=== PATIENT | female | born 1990 | race Caucasian/White ===

== ENCOUNTER 2022-01-25 09:04 | Outpatient (CLI) | payer BC, SELFPAY ==
--- OUTSIDE RECORDS SUMMARY | 2022-01-25 09:06 | XMS_ITS | Clinical Summary ---
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
--- OUTSIDE RECORDS SUMMARY | 2022-01-25 09:07 | XMS_ITS | Encounter Summary ---
:1990 Author Organization [place] Address [address] [facility] [place] [address] Care Team Providers Name Role Phone Unavailable Primary Care Provider Unavailable Encounter Details Date Type Department Care Team Description 10/22/2019 Orders Only [facility] Orthopaedic Michelle James En counter for Clinic AMD screening for other [address] [facility] [address] [place] [address] viral diseases 4th Floor [place], [place] (Primary Dx) [place] [phone] Social History Tobacco Use Types Packs/Day Years Used Date Never Assessed Sex Assigned at Date Recorded Female 10/11/2019 5:38 PM CDT COVID-19 Exposure Response Date Recorded In the last month, have you been in contact with No / Unsure 10/15/2019 12:16 PM CDT someone who was confirmed or suspected to have Coronavirus / COVID-19? documented as of this encounter Plan of Treatment Not on filedocumented as of this encounter Results Asymptomatic COVID-19 Virus (Coronavirus) by PCR (10/29/2019 9:23 AM CDT) [facility] Method Time Signature COVID-19 Nasopharyngeal 10/29/2019 [facility] Virus PCR to 9:25 AM CDT [facility] - [facility] COVID-19 Not Detected 10/29/2019 [facility] Virus PCR to 9:25 PM CDT [facility] - GENOMICS Result CENTER LABORATORY Comment: Collection of multiple specimens from th e same patient may be necessary to detect the virus. The possibility of a f alse negative should be considered if the patient's recent exposure or clinica l presentation suggests 2019 nCOV infection and diagnostic tests for other causes of illness are negative. Repeat testing may be considered in this setting. Viral RNA was extracted via a validated method and subsequently underwent single step reverse transcriptase-real t анна polymerase chain reaction using primers to the CDC specified N1,N2 gene targets of CoV2 and human [employer] as an internal control. A negative result does not rule out the presence of real-time PCR inhibitors in the specimen or COVID-19 RNA in romeo ntrations below the limit of detection of the assay. The possibility of a fals e negative should be considered if the patients recent exposure or clinical pr esentation suggests COVID-19. Additional testing or repeat testing req uires consultation with the laboratory. Nasopharyngeal specimen is the preferred choice for swab-based SARS CoV2 testing. When collection of a nasopharyn geal swab is not possible the following are acceptable alternatives: an oropharyngeal (OP) specimen collected by a healthcare professional, or a nasal mid-turbinate (NMT) swab collected by a healthcare professional or by onsite self-collection (using a flocked tapered swab), or an anterior nares specimen collected by a healthcare profe ssional or by onsite self-collection (using a round foam swab). (Centers for Disease Control) Testing performed by [facility], Room 1-210, [address] [place] [address]. T his test was developed and its performance characteristics determined b y the [facility]. It has not been cleared or appr florencio by the FDA. The laboratory is regulated under the Cl inical Laboratory Improvement Amendments of 1988 (CLIA-88) as qualifie d to perform high-complexity testing. This test is used for clinical purposes. It should not be regarded as investigational or for research. Specimen (Source) Anatomical Collection Method Collection Time Re ceived Time Location / / Volume Laterality Specimen from 10/29/2019 9:23 10/29/2019 nasopharyngeal AM CDT 9:24 AM CDT structure (specimen) Michelle James MD LAB - MICRO GENERAL ORDERABL ES Performing Organization Address City/State/ZIP [place] [address] GENOMICS CENTER Room: 1-[address] [phone] [facility] documented in this encounter Visit Diagnoses Diagnosis Encounter for screening for other viral diseases - Primary documented in this encounter
--- OUTSIDE RECORDS SUMMARY | 2022-01-25 09:07 | XMS_ITS | Encounter Summary ---
:1990 Author Organization [place] Address [address] [place] [address] Care Team Providers Name Role Phone Unavailable Primary Care Provider Unavailable Reason for Visit Diagnostic Imaging XR (Routine) - Closed Specialty Diagnoses / Procedures Referred By Contact Refer red To Contact Diagnoses Patellar instability of right knee Michelle James MD Procedures XR Knee Bilateral 05/[address] [place] [address] [id number] 5 Referral ID Status Reason Start Date Expiration Date Visits Requ ested Visits Authorized [id number] Closed 10/14/2019 10/13/2020 1 1 Encounter Details Date Type Department Care Team Description 10/15/2019 Ancillary Michelle Gallardo Patellar Procedure Orthopaedics Yanni Khan MD instability of [address] [facility] [address] [place] [address] right knee 4th [place] [phone] Social History Tobacco Use Types Packs/Day Years [...] Not on filedocumented as of this encounter Procedures Procedure Name Priority Date/Time Associated Diagnosis Comme nts XR KNEE BILATERAL Routine 10/15/2019 1:38 PM Patellar instabil ity Results for this 1/2 VIEWS CDT of right knee procedure are in the results section. documented in this encounter Results XR Knee Bilateral 1/2 Views (10/15/2019 1:38 PM CDT) Anatomical Region Laterality Modality Knee Bilateral Computed Radiography Specimen (Source) Anatomical Location Collection Method / Collectio n Time Received Time / Laterality Volume Impressions 10/15/2019 1:55 PM CDT IMPRESSION: Mild lateral patellar subluxation and patellar tilt in both knees. MARTIN COLVIN MD Narrative 10/15/2019 1:55 PM CDT Exam: Single axial view of both knees dated 10/15/2019. COMPARISON: Same day. CLINICAL HISTORY: Patellar instability. FINDINGS: Single axial view of both knee s were obtained. Slight lateral patellar subluxation of both kne es with minimal lateral patellar tilt. No fracture noted. Procedure Note Martin Colvin MD - 10/15/2019Form atting of this note might be different from the original. Exam: Single axial view of both knees da lily 10/15/2019. COMPARISON: Same day. CLINICAL HISTORY: Patellar instability. FINDINGS: Single axial view of both knee s were obtained. Slight lateral patellar subluxation of both kne es with minimal lateral patellar tilt. No fracture noted. IMPRESSION: Mild lateral patellar sublux ation and patellar tilt in both knees. MARTIN COLVIN MD Michelle James MD IMG DIAGNOSTIC IMAGING ORDER ANA LILIA documented in this encounter Visit Diagnoses Diagnosis Patellar instability of right knee Other specified disorders of lower leg j oint documented in this encounter
--- OUTSIDE RECORDS SUMMARY | 2022-01-25 09:07 | XMS_ITS | Encounter Summary ---
:1990 Author Organization [place] Address [address] [facility] [place] [address] Care Team Providers Name Role Phone Unavailable Primary Care Provider Unavailable Reason for Visit Reason Comments Surgical Followup DOS 11/01/19 Diagnostic Arthr oscopy Knee--Right, lateral meniscus repair - Right Encounter Details Date Type Department Care Team Description 12/23/2019 Office Visit [facility] MD Arjun unspecified [address] [place] [address] chronicity (Primary 4th Floor [place], [place] Dx) [place] [phone] Social History Tobacco Use Types Packs/Day Years Used Date Never Smoker Smokeless Tobacco: Never Used Sex Assigned at Date Recorded Female 10/11/2019 5:38 PM CDT COVID-19 Exposure Response Date Recorded In the last month, have you been in contact with No / Unsure 12/23/2019 11:43 AM CDT someone who was confirmed or suspected to have Coronavirus / COVID-19? documented as of this encounter Progress Notes Willie Reeder MD - 12/23/2019 12:00 PM CDT DIAGNOSIS: 1. Right lateral meniscus tear PROCEDURES: 1. Inside-out lateral meniscus repair, date of surgery 11/01/2019 HISTORY: Doing well 6 week out from surgery. Pain controlled. Off narcotics. Working in therapy. Has been compliant with weight bearing and ROM restrictions. Has returned to work. Denies fevers, chills, wound concerns, drainage. EXAM: General: Awake, Alert, and oriented. Articulates and communicates with a normal affect Right lower Extremity: ?? Incisions well healed without evidence of infection ?? No effusion and ecchymosis ?? Range of motion 0-90 ?? Stable to varus, valgus, lachmans ?? Neurovascularly intact IMAGING: None ASSESSMENT: 1. 6 week following inside out lateral meniscus repair. Doing well. PLAN: ?? Weightbearing as tolerated without knee brace ?? ROM as tolerated ?? Continue PT as scheduled ?? Okay for walking, but no running, jogging, squatting, kneeling ?? Goal to allow straight line running at 3 months post op ?? Follow up at 6 weeks from today (3 months from surgery) with no new X-Rays needed Willie Reeder MD Fellow, Sports Medicine & Shoulder [facility] Orthopaedic Surgery Jose Manuel Peters MD - 12/23/2019 12:00 PM CDT Patient seen and examined with the resident. Assesment: 6 weeks following meniscus repair, lateral meniscus right knee Plan: wbat, rom as darling, avoid kneeling or squatting, no running or jumping. Build strength and motion to allow running in 12 weeks. F/u 6 weeks I agree with history, physical and imaging as well as the assessment and plan as detailed by Dr. Reeder. documented in this encounter Nursing Notes Joann Najera ATC - 12/23/2019 12:00 PM CDT Reason For Visit: Chief Complaint Patient presents with ??? Surgical Followup DOS 11/01/19 Diagnostic Arthroscopy Knee--Right, lateral meniscus repair - Right Date of surgery: 11/01/19 Type of surgery: PROCEDURE: 1. Examination under anesthesia right knee 2. Right knee arthroscopy 3. Inside-out lateral meniscus repair Smoker: No Request smoking cessation information: No Pain Assessment Patient Currently in Pain: Yes 0-10 Pain Scale: 2 Primary Pain Location: Knee There were no vitals taken for this visit. No Known Allergies Current Outpatient Medications Medication ??? lisinopril (ZESTRIL) 10 MG tablet ??? Melatonin 5 MG CHEW ??? norethindrone (MICRONOR) 0.35 MG tablet No current facility-administered medications for this visit. Joann Najera ATC documented in this encounter Plan of Treatment Not on filedocumented as of this encounter Visit Diagnoses Diagnosis Right knee pain, unspecified chronicity - Primary documented in this encounter
--- OUTSIDE RECORDS SUMMARY | 2022-01-25 09:07 | XMS_ITS | Clinical Summary ---
:1990 Author Organization [place] Address [address] [facility] [place] [address] Care Team Providers Name Role Phone Unavailable Primary Care Provider Unavailable Allergies Active Allergy Reactions Severity Noted Date Comments Seasonal Allergies Headache, Other (See Comments) 01/14 Medications Medication Sig Dispensed Refills Start Date End Date Status lisinopril (ZESTRIL) 10 Take 1 tablet by 0 0 Active MG tablet mouth daily Melatonin 5 MG CHEW Take 1 tablet by 0 12/13/2018 Active mouth as needed norethindrone (MICRONOR) Take 1 tablet by 0 01/06/20 18 Active 0.35 MG tablet mouth daily Active Problems Problem Noted Date Locking of right knee 10/22/2019 Overview: Added automatically from request for charity [place] [id number] Resolved Problems Problem Noted Date Resolved Date Acute pain of right knee 10/15/2019 10/15/2019 Social History Tobacco Use Types Packs/Day Years Used Date Never Smoker Smokeless Tobacco: Never Used Sex Assigned at Date Recorded Female 10/11/2019 5:38 PM CDT Last Filed Vital Signs Vital Sign Reading Time Taken Comments Blood Pressure 120/73 11/01/2019 1:45 PM CDT Pulse 72 11/01/2019 1:45 PM CDT Temperature 36.4 ??C (97.5 ??F) 11/01/2019 1:45 PM CDT Respiratory Rate 16 02/03/2020 1:22 PM CDT Oxygen Saturation 97% 11/01/2019 1:45 PM CDT Inhaled Oxygen Concentration - - Weight 105.2 kg (232 lb) 02/03/2020 1:22 PM CDT Height 170.2 cm (5' 7) 02/03/2020 1:22 PM CDT Body Mass Index 36.34 02/03/2020 1:22 PM CDT Plan of Treatment Health Maintenance Due Date Last Done Comments ADVANCE CARE PLANNING 1990 ANNUAL REVIEW OF HM ORDERS 1990 PREVENTIVE CARE VISIT 1990 COVID-19 Vaccine (#1) 04/08/1992 HIV SCREENING 10/06/2006 HEPATITIS C SCREENING 10/06/2009 PAP 10/06/2012 DTAP/TDAP/TD IMMUNIZATION (1 10/06/2016 - Tdap) PHQ-2 (once per calendar 05/15/2021 02/03/2020, year) 10/15/2019, 10/15/2019 INFLUENZA VACCINE (#1) 2022 02/19/2019, 04/04/2018, 07/11/2014 HEPATITIS B IMMUNIZATION Aged Out No long er eligible based on patient's age to complete this to pic IPV IMMUNIZATION Aged Out No longer eligi ble based on patient's age to complete this to pic MENINGITIS IMMUNIZATION Aged Out No longe r eligible based on patient's age to complete this to pic Pneumococcal Vaccine: Aged Out No longer eligible based Pediatrics (0 to 5 Years) and on patient's age to At-Risk Patients (6 to 64 comple te this topic Years) Insurance Payer Benefit Plan / Subscriber ID Effective Dates Phone Addre ss Type Group BCBS BCBS OF [place] [id number] [facility] [phone] [address] [address] Indemnity t 0 [place] [address] (Home) [place] [phone] (Work) [employer]andes Personal/Family Self [address] (Home) [place] [phone] (Work)
--- OUTSIDE RECORDS SUMMARY | 2022-01-25 09:07 | XMS_ITS | Encounter Summary ---
:1990 Author Organization [place] Address [facility] [place] [address] Care Team Providers Name Role Phone Unavailable Primary Care Provider Unavailable Encounter Details Date Type Department Care Team Description 12/23/2019 Travel Social History Tobacco Use Types Packs/Day Years [...] filedocumented as of this encounter Visit Diagnoses Not on filedocumented in this encounter
--- OUTSIDE RECORDS SUMMARY | 2022-01-25 09:07 | XMS_ITS | Encounter Summary ---
:1990 Author Organization [place] Address [address] [place] [address] Care Team Providers Name Role Phone Unavailable Primary Care Provider Unavailable Reason for Visit Diagnostic Imaging XR (Routine) - Closed Specialty Diagnoses / Procedures Referred By Contact Refer red To Contact Diagnoses Patellar instability of right knee Michelle James MD Procedures XR Six Foot Standing Extremities [address] [place] [address] [phone] Referral ID Status Reason Start Date Expiration Date Visits Requ ested Visits Authorized [id number] Closed 10/14/2019 10/13/2020 1 1 Encounter Details Date Type Department Care Team Description 10/15/2019 Ancillary Michelle Gallardo Patellar Procedure Orthopaedics Yanni Khan MD instability of [address] [place] [address] [place] [address] right knee 4th [place] [address] [phone] Social History Tobacco Use Types Packs/Day Years [...] Priority Date/Time Associated Diagnosis Comme nts XR SIX FOOT STANDING Routine 10/15/2019 1:39 PM Patellar insta bility Results for this EXTREMITIES CDT of right knee procedure are in the results section. documented in this encounter Results XR Six Foot Standing Extremities (10/15/2019 1:39 PM CDT) Anatomical Region Laterality Modality Lower Extremity Computed Radiography Specimen (Source) Anatomical Location Collection Method / Collectio n Time Received Time / Laterality Volume Impressions 10/15/2019 1:50 PM CDT IMPRESSION: Normal weightbearing axis in the bilateral lower extremities. MARTIN COLVIN MD Narrative 10/15/2019 1:50 PM CDT Exam: Single view of the bilateral lower extremities dated 10/15/2019. COMPARISON: None. CLINICAL HISTORY: Patellar instability. FINDINGS: Single view of the bilateral lower extre mities was obtained. A line drawn from the top of the femoral head to the tibial plafond measures 81.9 on the left and 82.4 on th e right. A line drawn from the mid femoral head to the mid tibial plafo nd falls between the tibial spines in both lower extremities. Subtle focus of sclerosis along the fibular aspect of the right distal tibia , nonspecific, possibly healed nonossifying fibroma. Procedure Note Martin Colvin MD - 10/15/2019Form atting of this note might be different from the original. Exam: Single view of the bilateral lower extremities dated 10/15/2019. COMPARISON: None. CLINICAL HISTORY: Patellar instability. FINDINGS: Single view of the bilateral lower extre mities was obtained. A line drawn from the top of the femoral head to the tibial plafond measures 81.9 on the left and 82.4 on th e right. A line drawn from the mid femoral head to the mid tibial plafo nd falls between the tibial spines in both lower extremities. Subtle focus of sclerosis along the fibular aspect of the right distal tibia , nonspecific, possibly healed nonossifying fibroma. IMPRESSION: Normal weightbearing axis in the bilateral lower extremities. MARTIN COLVIN MD Michelle James MD IMG DIAGNOSTIC IMAGING ORDER ANA LILIA documented in this encounter Visit Diagnoses Diagnosis Patellar instability of right knee Other specified disorders of lower leg j oint documented in this encounter
--- OUTSIDE RECORDS SUMMARY | 2022-01-25 09:07 | XMS_ITS | Encounter Summary ---
:1990 Author Organization [place] Address [address] [place] [address] Care Team Providers Name Role Phone Unavailable Primary Care Provider Unavailable Reason for Referral Diagnostic Imaging MRI (Routine) - Closed Specialty Diagnoses / Procedures Referred By Contact Refer red To Contact Diagnoses Right knee pain, unspecified chronicity Michelle James MD Procedures MR Knee Right w/o Contrast [address] [place], [place] [address] Referral ID Status Reason Start Date Expiration Date Visits Requ ested Visits Authorized [id number] Closed 10/15/2019 10/14/2020 1 1 Reason for Visit Reason Comments Consult Patellar instability of righ t knee // Referred by Dr. Renato Calles at [facility] Orthoped ic Services to Dr. James // imaging xrays and MRI October 2018 // Consultation (Routine) - Closed Specialty Diagnoses / Procedures Referred By Contact Refer red To Contact Diagnoses Patellar instability of right knee Generic External Data [facility] [address] [place] [address] Phone: Fax: Referral ID Status Reason Start Date Expiration Date Visits Requ ested Visits Authorized [id number] Closed 07/05/2019 05/14/2020 40 40 Encounter Details Date Type Department Care Team Description 10/15/2019 Office Visit [facility] [address] [place] [address] Patellar instability of right knee (Prim tami Dx); Clinic Michelle James MD [address] [place] [phone] Right knee pain, unspecified chronicity; [address] [place] [address] Locking of right knee [address] [place] [address] Social History Tobacco Use Types Packs/Day Years Used Date Never Assessed Sex Assigned at Date Recorded Female 10/11/2019 5:38 PM CDT COVID-19 Exposure Response Date Recorded In the last month, have you been in contact with No / Unsure 10/15/2019 12:16 PM CDT someone who was confirmed or suspected to have Coronavirus / COVID-19? documented as of this encounter Last Filed Vital Signs Vital Sign Reading Time Taken Comments Blood Pressure - - Pulse - - Temperature - - Respiratory Rate - - Oxygen Saturation - - Inhaled Oxygen Concentration - - Weight 108.6 kg (239 lb 6.4 oz) 10/15/2019 1:39 PM CDT Height 172 cm (5' 7.72) 10/15/2019 1:39 PM CDT Body Mass Index 36.71 10/15/2019 1:39 PM CDT documented in this encounter Progress Notes LindaDanniMONICA - 10/15/2019 1:20 PM CDT Reason For Visit: Chief Complaint Patient presents with ??? Consult Patellar instability of right knee // Referred by Dr. Renato Calles at [facility] Orthopedic Services to Dr. James // imaging xrays x2 and MRI October 2018 // Primary MD: No primary care provider on file. Ref. MD: Dr. Renato Calles at [facility] Orthopedic Railway Shunter? 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 Date of injury: No Type of injury: reoccurring incident Date of surgery: No Type of surgery: No. Smoker: No Request smoking cessation information: No Ht 1.72 m (5' 7.72) Wt 108.6 kg (239 lb 6.4 oz) BMI 36.71 kg/m?? Pain Assessment Patient Currently in Pain: Yes 0-10 Pain Scale: 1 Primary Pain Location: Knee(right) Danni Mckeon LPN Michelle James MD - 10/15/2019 1:20 PM CDT Patient is a 29-year-old female who reports her own history. She is referred by Dr. Flako Talley of [place]. She carries a tentative diagnosis of right knee instability, presumably patella. She is very specific about these events. The first 1 started in October 2018. She was kneeling her in asquat position and she could not get up. Her knee was locked. When asked about what degree of knee flexion she demonstrates about 30 degrees of knee flexion and she could not bend it either way flexionor extension. At that time she went to the emergency room. She is very specific that the x- rays were taken when her knee was locked. They show a located kneecap. They also show no significance knee swelling At that event, she reports that her knee locking lasted approximately 3 days. She reports that her knee did become quite puffy or swollen. She has had 3 other events. The second event was in the fall that lasted about 4 hours The next event lasted only a few minutes. The most recent event happened in June and it lasted 1to 2 hours where her knee was locked. She is not sure how it unlocks. This last time in June was the first time that she actually feltthat her knee shifted and gave her some sense of relief after it shifted. At that time she could move her knee. She was actually in the emergency room getting onto the table when her knee shifted and she felt immediately better this was only time that was that dramatic. When asked how she has fared since June she reports that she just avoids squatting or kneeling on her knees. She finds that most of the events since the very first event was when she was kneeling and trying to get back up She currently lives alone. 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 She is however continuing to do some home visits during the summer She and enjoys CrossFit training. Her weight has been stable over time. She has modified her CrossFit so that she does not do jumping and twisting and does not do any kind of kneeling and then getting back up. She is not a smoker. She is currently on the estrogen patch for menstrual control as well as contraception. There is no known history of DVT. Physical exam reveals a woman of hefty body build. She moves on and off the table without issues. Examination of her affected knee reveals no knee swelling. Range of motion full extension to 125 degrees of flexion with some posterior discomfort to circumduction maneuvers that she cannot localize medial or lateral. Patella exam is stable in particular 1 quadrant lateral mobility with a firm endpoint. No apprehension Examination of her contralateral left knee reveals a similar exam except that her range of motion is0-1 35 with no pain to the limits of hyperextension. An MRI was done a year ago that was significant only for some grade II chondromalacia of the patella. It is also significant to note that this was taken after her first locked event. It was taken 15 days after she came into the ER in 2019. It shows no pathologic knee swelling. A new MRI was obtained today. With her history of locking I felt that it sounded suspicious for perhaps an advancing lateral meniscus tear that was now more easily displaceable to lock and unlock. The MRI done today was significant for continued chondral wear of the patella, and some minor swelling of the knee in particular swelling in the meniscosynovial posterior lateral junction. On coronal views there appears to be a protruded lateral meniscus, which is not as evident on sagittal views. Assessment: It is clear to me that this patient has not dislocating her patella. This is reinforced by physical exam, no knee swelling on MRI, and a located kneecap on her ER visit which was done during the time that her knee was locked. Primarily based on the history, I would favor a working diagnosis of a hypermobile lateral meniscus.I believe that there are suggestions on the new MRI that that this is present, but the diagnosis is primarily made by her history. I would suggest that we perform a diagnostic arthroscopy. Really the most telling way to confirm this diagnosis would be to show that the meniscus is displaceable under anesthesia at the time of arthroscopy. If it is that she will proceed with a lateral meniscus repair. She understands that I no longer do the surgery and I have transferred her to my partner Jesus Alberto Kaplan. She understands this and is comfortable seeing him the morning surgery. I did go through her postoperative regiment and potential time away from work. Because she can be shelly knee brace that she can lock and unlock I believe that she be able to go back to her job within a few weeks as she does not have any kind of behavioral issues that have to be managed. All questions were answered. Room time 30 minutes consultation time 25 Michelle James MD Professor Orthopedic Surgery [facility] Answers for HPI/ROS submitted by the patient on 10/14/2019 General Symptoms: No Skin Symptoms: No HENT Symptoms: Yes EYE SYMPTOMS: No HEART SYMPTOMS: No LUNG SYMPTOMS: No INTESTINAL SYMPTOMS: No URINARY SYMPTOMS: No GYNECOLOGIC SYMPTOMS: No BREAST SYMPTOMS: No SKELETAL SYMPTOMS: Yes BLOOD SYMPTOMS: No NERVOUS SYSTEM SYMPTOMS: Yes MENTAL HEALTH SYMPTOMS: No Ear pain: No Ear discharge: No Hearing loss: No Tinnitus: No Nosebleeds: No Congestion: Yes Sinus pain: Yes Trouble swallowing: No Voice hoarseness: No Mouth sores: No Sore throat: No Tooth pain: No Gum tenderness: No Bleeding gums: No Change in taste: No Change in sense of smell: No Dry mouth: No Hearing aid used: No Neck lump: No Back pain: Yes Muscle aches: No Neck pain: No Swollen joints: No Joint pain: Yes Bone pain: No Muscle cramps: No Muscle weakness: No Joint stiffness: No Bone fracture: No Trouble with coordination: No Dizziness or trouble with balance: No Fainting or black-out spells: No Memory loss: No Headache: Yes Seizures: No Speech problems: No Tingling: No Tremor: No Weakness: No Difficulty walking: No Paralysis: No Numbness: No documented in this encounter Plan of Treatment Not on filedocumented as of this encounter Results MR Knee Right w/o Contrast (10/15/2019 3:35 PM CDT) Anatomical Region Laterality Modality Right Knee, SUBRAD MR MSK, UMP MR MSK, RAD MR Magnetic Resonance Specimen (Source) Anatomical Location Collection Method / Collectio n Time Received Time / Laterality Volume Impressions 10/15/2019 3:43 PM CDT Impression: 1. Full-thickness fissuring of cartilage over the median ridge and lateral facet of the patella. Trace late ral patellar subluxation. 2. Intact menisci, cruciate ligaments, a nd medial and lateral supporting structures. DARRELL FERNANDEZ MD (Joe) Narrative 10/15/2019 3:43 PM CDT MR right knee without contrast Techniques: Multiplanar multisequence im aging of the right ??knee was obtained without ??administration of int ra-articular or intravenous contrast using routing protocol. History: Right knee pain Comparison: Radiographs same-day, outsid e MRI 6 Findings: MENISCI: Medial meniscus: Intact. Lateral meniscus: Intact. LIGAMENTS Cruciate ligaments: Intact. Medial supporting structures: Intact. Lateral supporting structures: Intact. EXTENSOR MECHANISM Intact. FLUID Trace joint effusion. No Alba's cyst. OSSEOUS and ARTICULAR STRUCTURES Bones: No fracture, contusion, or osseou s lesion is seen. Patellofemoral compartment: Full-thickne ss fissuring of cartilage over the median ridge and lateral facet of th e patella with mild subchondral cystic change and edema. The patella is subluxed laterally approximately 4 mm. Patella ray. Shallo w trochlear groove measuring 4 mm on series 4 image 17. Tibial tuberosi ty-trochlear groove interval measures 1.7 cm, within normal limits. Medial compartment: Mild heterogeneity o f cartilage in the medial compartment (for example series 6 image 19). No subchondral cystic change or edema. Lateral compartment: Mild chondral heter ogeneity of the posterior aspect of the lateral tibial plateau com patible with mild chondromalacia. ANCILLARY FINDINGS None. Procedure Note Darrell Fernandez, - 10/15/19 20 MR right knee without contrast Techniques: Multiplanar multisequence im aging of the right knee was obtained without administration of intra -articular or intravenous contrast using routing protocol. History: Right knee pain Comparison: Radiographs same-day, outsid e MRI 6 Findings: MENISCI: Medial meniscus: Intact. Lateral meniscus: Intact. LIGAMENTS Cruciate ligaments: Intact. Medial supporting structures: Intact. Lateral supporting structures: Intact. EXTENSOR MECHANISM Intact. FLUID Trace joint effusion. No Alba's cyst. OSSEOUS and ARTICULAR STRUCTURES Bones: No fracture, contusion, or osseou s lesion is seen. Patellofemoral compartment: Full-thickne ss fissuring of cartilage over the median ridge and lateral facet of th e patella with mild subchondral cystic change and edema. The patella is subluxed laterally approximately 4 mm. Patella ray. Shallo w trochlear groove measuring 4 mm on series 4 image 17. Tibial tuberosi ty-trochlear groove interval measures 1.7 cm, within normal limits. Medial compartment: Mild heterogeneity o f cartilage in the medial compartment (for example series 6 image 19). No subchondral cystic change or edema. Lateral compartment: Mild chondral heter ogeneity of the posterior aspect of the lateral tibial plateau com patible with mild chondromalacia. ANCILLARY FINDINGS None. Impression: 1. Full-thickness fissuring of cartilage over the median ridge and lateral facet of the patella. Trace late ral patellar subluxation. 2. Intact menisci, cruciate ligaments, a nd medial and lateral supporting structures. DARRELL FERNANDEZ MD (Joe) Michelle James MD IMG MRI ORDERABLES documented in this encounter Visit Diagnoses Diagnosis Patellar instability of right knee - Vanesa mccormick Other specified disorders of lower leg j oint Right knee pain, unspecified chronicity Locking of right knee Right knee pain, unspecified chronicity documented in this encounter
--- OUTSIDE RECORDS SUMMARY | 2022-01-25 09:07 | XMS_ITS | Encounter Summary ---
:1990 Author Organization [place] Address [facility] [place] [address] Care Team Providers Name Role Phone Unavailable Primary Care Provider Unavailable Encounter Details Date Type Department Care Team Description 11/01/2019 Travel Social History Tobacco Use Types Packs/Day Years Used Date Never Assessed Sex Assigned at Date Recorded Female 10/11/2019 5:38 PM CDT COVID-19 Exposure Response Date Recorded In the last month, have you been in contact with No / Unsure 11/01/2019 8:22 AM CDT someone who was confirmed or suspected to have Coronavirus / COVID-19? documented as of this encounter Plan of Treatment Not on filedocumented as of this encounter Visit Diagnoses Not on filedocumented in this encounter
--- OUTSIDE RECORDS SUMMARY | 2022-01-25 09:07 | XMS_ITS | Encounter Summary ---
:1990 Author Organization [place] Address [facility] [place] [address] Care Team Providers Name Role Phone Unavailable Primary Care Provider Unavailable Encounter Details Date Type Department Care Team Description 10/22/2019 Prep for Procedure [facility] Orthopaedic Jesus Alberto Peters [facility] MD Arjun [address] [place] [address] 4th [address] [place], [place] [address] [phone] Social History Tobacco Use Types Packs/Day Years Used Date Never Assessed Sex Assigned at Date Recorded Female 10/11/2019 5:38 PM CDT COVID-19 Exposure Response Date Recorded In the last month, have you been in contact with No / Unsure 10/15/2019 12:16 PM CDT someone who was confirmed or suspected to have Coronavirus / COVID-19? documented as of this encounter Miscellaneous Notes Addendum Note - Ramez Peters MD - 10/22/2019 10:17 AM CDT Addended by: RAMEZ PETERS on: 10/24/2019 08:35 AM Modules accepted: Orders documented in this encounter Plan of Treatment Not on filedocumented as of this encounter Procedures Procedure Name Priority Date/Time Associated Diagnosis Comme nts CASE REQUEST MODIFICATION Routine 10/24/2019 8:35 AM CDT documented in this encounter Visit Diagnoses Not on filedocumented in this encounter
--- OUTSIDE RECORDS SUMMARY | 2022-01-25 09:07 | XMS_ITS | Encounter Summary ---
:1990 Author Organization [place] Address [address] [facility] [place] [address] Care Team Providers Name Role Phone Unavailable Primary Care Provider Unavailable Reason for Visit Reason Onset Date Comments *-*INCOMING RECORDS*-* 09/03/2019 Encounter Details Date Type Department Care Team Description 09/03/2019 PRE VISIT [facility] Orthopaedic Michelle James, *-*INCOMING RECORDS*-* Clinic [address] [place] [id number] [phone] Social History Tobacco Use Types Packs/Day Years Used Date Never Assessed Sex Assigned at Date Recorded Female 10/11/2019 5:38 PM CDT documented as of this encounter Miscellaneous Notes Telephone Encounter - Dinah Sanchez - 07/12/2019 12:04 PM CST DIAGNOSIS: Patellar instability of right knee // Referred by Dr. Renato Calles at [facility] Orthopedic Services to Dr. James // imaging xrays x2 and MRI October 2018 // APPOINTMENT DATE: 09.03.2019 NOTES STATUS DETAILS OFFICE NOTE from referring provider Received 07.01.19 Dr. Calles, [facility] -Requested if there are any more related records. OFFICE NOTE from other specialist N/A DISCHARGE SUMMARY from hospital N/A DISCHARGE REPORT from the ER N/A OPERATIVE REPORT N/A MEDICATION LIST N/A IMPLANT RECORD/STICKER N/A LABS CBC/DIFF N/A CULTURES N/A INJECTIONS DONE IN RADIOLOGY N/A MRI In process 10.31.18 Right lower extremity, CDI 10.31.[address] SCAN N/A XRAYS (IMAGES & REPORTS) N/A TUMOR PATHOLOGY Slides & report N/A Action 07.12.19 12:17 PM Action Taken Requested CDI images. Also, requested more med recs from [facility]. 07/19/19 1:58 PM Disc with images given to Jessie Pre-visit complete Debra Silva CMA CONDITIONER documented in this encounter Plan of Treatment Not on filedocumented as of this encounter Visit Diagnoses Not on filedocumented in this encounter
--- OUTSIDE RECORDS SUMMARY | 2022-01-25 09:07 | XMS_ITS | Encounter Summary ---
:1990 Author Organization [place] Address [address] [facility] [place] [address] Care Team Providers Name Role Phone Unavailable Primary Care Provider Unavailable Reason for Visit Reason Comments Surgical Followup S/P right knee surgery Encounter Details Date Type Department Care Team Description 02/03/2020 Office Visit [facility] Orthopaedic Jose Manuel Peters Ri ght knee pain, Clinic MD Arjun unspecified [address] [place] [address] chronicity (Primary [address] Floor [place], [place] Dx) [place] [phone] Social History Tobacco Use Types Packs/Day Years Used Date Never Smoker Smokeless Tobacco: Never Used Sex Assigned at Date Recorded Female 10/11/2019 5:38 PM CDT COVID-19 Exposure Response Date Recorded In the last month, have you been in contact with No / Unsure 02/03/2020 12:57 PM CDT someone who was confirmed or suspected to have Coronavirus / COVID-19? documented as of this encounter Last Filed Vital Signs Vital Sign Reading Time Taken Comments Blood Pressure - - Pulse - - Temperature - - Respiratory Rate 16 02/03/2020 1:22 PM CDT Oxygen Saturation - - Inhaled Oxygen Concentration - - Weight 105.2 kg (232 lb) 02/03/2020 1:22 PM CDT Height 170.2 cm (5' 7) 02/03/2020 1:22 PM CDT Body Mass Index 36.34 02/03/2020 1:22 PM CDT documented in this encounter Progress Notes Jose Manuel Peters MD - 02/03/2020 1:20 PM CDT DIAGNOSIS: 1. Right lateral meniscus tear PROCEDURES: 1. Inside-out lateral meniscus repair, date of surgery 11/01/2019 HISTORY: Doing well 12 weeks out from the above surgery. Pain controlled. Off narcotics. Pain is 1. Overall happy with how she is doing. Would like to do more. Like to return to running. EXAM: General: Awake, Alert, and oriented. Articulates and communicates with a normal affect Right lower Extremity: ?? Incisions well healed without evidence of infection ?? No effusion and ecchymosis ?? Range of motion 0 to 120 degrees ?? Stable to varus, valgus, lachmans ?? Neurovascularly intact IMAGING: None ASSESSMENT: 1. 12 weeks following inside out lateral meniscus repair. PLAN: ?? Weightbearing as tolerated ?? range of motion as tolerated ?? Okay to transition back to desired activities ?? No specific restrictions besides commonsense ?? Try to make an effort to avoid repeated squatting or hyperflexion however she is ultimately allowed to return to her desired activities at this time ?? She can follow-up with me on an as-needed basis going forward. If she is having symptoms in 3 months time which would be 6 months from surgery she is certainly welcome to make an appointment see me again in clinic at that time. documented in this encounter Nursing Notes Damian Mcdonough ATC - 02/03/2020 1:20 PM CDT Reason For Visit: Chief Complaint Patient presents with ??? Surgical Followup S/P right knee surgery . Date of surgery: Diagnostic Arthroscopy Knee--Right, lateral meniscus repair Type of surgery: 11/01/19. Pain Assessment Patient Currently in Pain: Yes 0-10 Pain Scale: 1 Primary Pain Location: Knee documented in this encounter Plan of Treatment Not on filedocumented as of this encounter Visit Diagnoses Diagnosis Right knee pain, unspecified chronicity - Primary documented in this encounter
--- OUTSIDE RECORDS SUMMARY | 2022-01-25 09:07 | XMS_ITS | Encounter Summary ---
:1990 Author Organization [place] Address [facility] [place] [address] Care Team Providers Name Role Phone Unavailable Primary Care Provider Unavailable Encounter Details Date Type Department Care Team Description 10/29/2019 Travel Social History Tobacco Use Types Packs/Day Years Used Date Never Assessed Sex Assigned at Date Recorded Female 10/11/2019 5:38 PM CDT COVID-19 Exposure Response Date Recorded In the last month, have you been in contact Unable to assess 10/29/2019 9:23 AM CDT with someone who was confirmed or suspected to have Coronavirus / COVID-19? documented as of this encounter Plan of Treatment Not on filedocumented as of this encounter Visit Diagnoses Not on filedocumented in this encounter
--- OUTSIDE RECORDS SUMMARY | 2022-01-25 09:07 | XMS_ITS | Encounter Summary ---
:1990 Author Organization [place] Address [address] [facility] [place] [address] Care Team Providers Name Role Phone Unavailable Primary Care Provider Unavailable Reason for Visit Reason Comments Surgical Followup 1 wk post-op right knee scop e and lateral meniscus repair DOS 11/01/19 Encounter Details Date Type Department Care Team Description 11/11/2019 Office Visit [facility] Orthopaedic Jose Manuel Peters of right knee Clinic MD Arjun (Primary Dx) [address] [place] [address] [address] [place] [address] [phone] Social History Tobacco Use Types Packs/Day Years Used Date Never Assessed Sex Assigned at Date Recorded Female 10/11/2019 5:38 PM CDT COVID-19 Exposure Response Date Recorded In the last month, have you been in contact with No / Unsure 11/11/2019 12:40 PM CDT someone who was confirmed or suspected to have Coronavirus / COVID-19? documented as of this encounter Progress Notes Jose Manuel Peters MD - 11/11/2019 1:00 PM CDT DIAGNOSIS: 1. Right lateral meniscus tear PROCEDURES: 1. Inside-out lateral meniscus repair, date of surgery 11/01/2019 HISTORY: Doing well 1 week out from surgery. Pain controlled. Off narcotics. Started therapy. EXAM: General: Awake, Alert, and oriented. Articulates and communicates with a normal affect Right lower Extremity: ?? Incisions well healed without evidence of infection ?? Normal post-operative effusion and ecchymosis ?? Range of motion and stability exam not performed ?? Neurovascularly intact IMAGING: None ASSESSMENT: 1. 1 week following inside out lateral meniscus repair. Doing well. PLAN: ?? Weightbearing as tolerated with knee brace locked in full extension x6 weeks ?? No weightbearing with brace offer unlocked ?? Range of motion 0 to 90 degrees when sitting or doing therapy ?? Sutures removed in clinic ?? Leave steri-strips in place until they fall off ?? OK to shower allowing water to run over incision ?? No soaking, scrubbing, baths, or pablo for 1 additional week ?? Continue PT as scheduled ?? Pain medications reviewed and no refills required. ?? Operative report provided and arthroscopic images reviewed ?? Follow up at 6 weeks from the date of surgery with no new X-Rays needed documented in this encounter Nursing Notes Peg Patten ATC - 11/11/2019 1:00 PM CDT Reason For Visit: Chief Complaint Patient presents with ??? Surgical Followup 1 wk post-op right knee scope and lateral meniscus repair DOS 11/01/19 There were no vitals taken for this visit. Pain Assessment Patient Currently in Pain: Yes(more of soreness per pt) 0-10 Pain Scale: 3 Primary Pain Location: Knee(right) Peg Patten ATC documented in this encounter Plan of Treatment Not on filedocumented as of this encounter Visit Diagnoses Diagnosis Locking of right knee - Primary documented in this encounter
--- OUTSIDE RECORDS SUMMARY | 2022-01-25 09:07 | XMS_ITS | Encounter Summary ---
:1990 Author Organization [place] Address [address] [facility] [place] [address] Care Team Providers Name Role Phone Unavailable Primary Care Provider Unavailable Encounter Details Date Type Department Care Team Description 10/29/2019 Orders Only [facility] Michelle James, Encounter for [address] [place] [address] screening for other [address] [place] [address] [place] [phone] (Wo rk) Social History Tobacco Use Types Packs/Day Years [...] Name Priority Date/Time Associated Diagnosis Comme nts COVID-19 VIRUS Routine 10/29/2019 9:23 AM Encounter for Result s for this (CORONAVIRUS) BY CDT screening for other proc edure are in PCR viral diseases the results section. documented in this encounter Results Asymptomatic COVID-19 Virus (Coronavirus) by PCR (10/29/2019 9:23 AM CDT) [facility] Method Time Signature COVID-19 Nasopharyngeal 10/29/[address] [facility] PCR to 9:25 AM CDT [facility] COVID-19 Not Detected 10/29/2019 [facility] Virus PCR to 9:25 PM CDT [facility] LABORATORY Comment: Collection [...] N1,N2 gene targets of CoV2 and human CORONER/MEDICAL EXAMINER as an internal control. A negative result [...] (Centers for Disease Control) Testing performed by [facility], Room 1-210, [address] [place] [address]. T his test was developed and its performance characteristics determined b y the [facility]. It has not been cleared or appr [...] Organization Address City/State/ZIP Code Phon e Number [facility] [address] [place] [id number] [facility] Room: 1-[address] [phone] [facility] documented in this encounter Visit Diagnoses Diagnosis Encounter for screening for other viral diseases documented in this encounter
--- OUTSIDE RECORDS SUMMARY | 2022-01-25 09:07 | XMS_ITS | Encounter Summary ---
:1990 Author Organization [place] Address [address] [facility] [place] [address] Care Team Providers Name Role Phone Unavailable Primary Care Provider Unavailable Reason for Visit Reason Onset Date Comments Schedule Surgery 10/22/2019 Dr Peters Encounter Details Date Type Department Care Team Description 10/22/[address] [facility] Orthopaedic Jose Manuel Peters [facility] Surgery (MD Fran Shi) [address] [place] [address] [address] [place] [address] [phone] Social History Tobacco Use Types Packs/Day Years [...] this encounter Miscellaneous Notes Telephone Encounter - Perla Funes MA - 10/22/2019 11:01 AM CDT Patient is scheduled for surgery with Dr. 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
--- OUTSIDE RECORDS SUMMARY | 2022-01-25 09:07 | XMS_ITS | Encounter Summary ---
:1990 Author Organization [place] Address [address] [place] [address] Care Team Providers Name Role Phone Unavailable Primary Care Provider Unavailable Reason for Referral Diagnostic Imaging XR (Routine) - Closed Specialty Diagnoses / Procedures Referred By Contact Refer red To Contact Diagnoses Patellar instability of right knee Michelle James MD Procedures XR Six Foot Standing Extremities [address] [place], [place] [phone] Referral ID Status Reason Start Date Expiration Date Visits Requ ested Visits Authorized [id number] Closed 10/14/2019 10/13/2020 1 1 Diagnostic Imaging XR (Routine) - Closed Specialty Diagnoses / Procedures Referred By Contact Refer red To Contact Diagnoses Patellar instability of right knee Michelle James MD Procedures XR Knee Bilateral 1/[address] [place] [phone] 5 Referral ID Status Reason Start Date Expiration Date Visits Requ ested Visits Authorized [id number] Closed 10/14/2019 10/13/2020 1 1 AM Physical Therapy (Routine) - Closed Specialty Diagnoses / Procedures Referred By Contact Refer red To Contact Diagnoses Patellar instability of right knee Michelle James MD [address] [place] [address] 5545 5 Referral ID Status Reason Start Date Expiration Date Visits Requ ested Visits Authorized [id number] Closed 10/14/2019 10/13/2020 1 1 Encounter Details Date Type Department Care Team Description 10/14/[address] [facility] Orthopaedic Michelle James [facility] MD Bill of right knee [address] [place] [address] (Primary Dx) [address] [place] [phone] Social History Tobacco Use Types Packs/Day Years Used Date Never Assessed Sex Assigned at Date Recorded Female 10/11/2019 5:38 PM CDT documented as of this encounter Plan of Treatment Scheduled Referrals Name Type Priority Associated Diagnoses Order S chedule [facility] PT, HAND, AND Referral Routine Patellar instability 1 Occurrences starting CHIROPRACTIC REFERRAL of right knee 10/13 until 10/13/2020 documented as of this encounter Results XR Six Foot Standing [...] extremities. MARTIN COLVIN MD Michelle James MD [facility] ORDER ANA LILIA XR Knee Bilateral 1/2 Views (10/15/2019 1:38 [...] Exam: Single axial view of both knees [facility] 10/15/2019. COMPARISON: Same day. CLINICAL HISTORY: Patellar instability. FINDINGS: Single axial view of both knee s were obtained. Slight lateral patellar subluxation of both kne es with minimal lateral patellar tilt. No fracture noted. IMPRESSION: Mild lateral patellar sublux ation and patellar tilt in both knees. MARTIN COLVIN MD Michelle James MD [facility] ORDER ANA LILIA documented in this encounter Visit Diagnoses Diagnosis Patellar instability of right knee - Vanesa anny Other specified disorders of lower leg j oint Patellar instability of right knee Other specified disorders of lower leg j oint Patellar instability of right knee Other specified disorders of lower leg j oint documented in this encounter
--- OUTSIDE RECORDS SUMMARY | 2022-01-25 09:07 | XMS_ITS | Encounter Summary ---
:1990 Author Organization [place] Address [facility] [place] [address] Care Team Providers Name Role Phone Unavailable Primary Care Provider Unavailable Encounter Details Date Type Department Care Team Description 02/03/2020 Travel Social History Tobacco Use Types Packs/Day [...]
--- OUTSIDE RECORDS SUMMARY | 2022-01-25 09:07 | XMS_ITS | Encounter Summary ---
:1990 Author Organization [place] Address [address] [place] [address] Care Team Providers Name Role Phone Unavailable Primary Care Provider Unavailable Encounter Details Date Type Department Care Team Description 11/01/2019 Anesthesia Event [facility] Surgery and Jenelle Rojas MD [address] [facility] [address] [place], [place] [id number] Procedure Center Daniel Escoto MD [facility] [address] [facility] [address] [place] [address] [address] [place] [address] Anesthesia Record Procedure Summary Procedure Name Responsible Anesthesia Start Anesthesia Stop Anesthesiologist Time Time Diagnostic Jenelle Rojas MD 11/01/19 1058 11/01/19 1252 Arthroscopy Knee--Right, lateral meniscus repair (Right Knee) Events Date Time Event Comment 11/01/2019 1058 An Start 1103 An Start Data 1108 An Induction 1110 An LMA 1133 AN INCISION 1243 LMA Removed 1247 an stop data 1252 An Stop Electronically s igned by Jose R Krueger APRN CRNA on November 01, 2019 12 :52 PM Name Total fentaNYL 50 mcg/mL 100 mcg lidocaine 2% 100 mg propofol 10 mg/mL 200 mg ketamine injection 10 mg/mL 25 mg propofol infusion (mcg/kg/min) 397.75 mg glycopyrrolate 0.2 mg/mL 0.2 mg dexamethasone 4 mg/mL 4 mg ondansetron 2 mg/mL 4 mg ketorolac 30 mg/mL 30 mg ceFAZolin (ANCEF) intermittent infusion 2 g in 50 mL d extrose PREMIX 2 g bupivacaine liposome (EXPAREL) 1.3 % LA inj susp 10 mL 10 mL bupivacaine 0.25% PF (perineural) 10 mL lactated ringers infusion 200 mL Agents Name NO HELIOX O2 N2O Air Exp Sevoflurane Exp Isoflurane Exp Desflurane Exp N2O Ins Sevoflurane Ins Isoflurane Ins Desflurane O2 Auxiliary Blood No blood administrations on file. Lines, Drains, and Airways Type Details Placement Removal Incision/Surgical Site 11/01/19; 1130; Right; 11/01/19 1130 by Knee; x3 incisions Gisselle Ramirez, GEORGINA Peripheral IV 11/01/19; 0857; 20 G; 11/01/19 0857 by To, 10/31 1348 by Left; Hand GEORGINA Brown Curtis, GEORGINA Retired Non-Surgical 11/01/19; 1110; Easy; 11/01/19 1110 by 10/13 02/01 1243 by Airway Intravenous; laryngeal Jose R Krueger, Saul morrell, Jose R Alva, mask airway (#4); JUKEBOX CHECKER FILLER OPERATOR JUKEBOX CHECKER FILLER OPERATOR center of mouth; Equal, clear and bilateral; FILLER OPERATOR; Spontaneous ventilation, Adequate tidal volume, Head lift adequate, Supervisor Powdered Metal strength adequate, Transported with oxygen, Follows commands, Purposeful movement documented in this encounter Social History Tobacco Use Types Packs/Day Years Used Date Never Assessed Sex Assigned at Date Recorded Female 10/11/2019 5:38 PM CDT COVID-19 Exposure Response Date Recorded In the last month, have you been in contact with No / Unsure 11/01/2019 8:22 AM CDT someone who was confirmed or suspected to have Coronavirus / COVID-19? documented as of this encounter OR Notes Anesthesia Postprocedure Evaluation - Jenelle Rojas MD - 11/01/2019 2:56 PM CDT Anesthesia POST Procedure Evaluation Patient: Jewels Hernandes Gender: female Age: [age] year old : 1990 Preoperative Diagnosis: Locking of right knee [M23.91] Procedure(s): Diagnostic Arthroscopy Knee--Right, lateral meniscus repair Postop Comments: No value filed. Anesthesia Type: General, Peripheral Nerve Block Disposition: Outpatient Postop Pain Control: Uneventful Sign Out: Well controlled pain PONV: No Neuro/Psych: Uneventful Sign Out: Acceptable/Baseline neuro status Airway/Respiratory: Uneventful Sign Out: Acceptable/Baseline resp. status CV/Hemodynamics: Uneventful Sign Out: Acceptable CV status Other NRE: NONE DID A NON-ROUTINE EVENT OCCUR? No Event details/Postop Comments: Doing well. Alert, oriented. No sore throat, nausea, or problems with pain control. Patient denies any concerns. Last Anesthesia Record Vitals: FILLER OPERATOR VITALS 11/01/2019 1217 - 11/01/2019 1317 11/01/2019 Pulse: 97 SpO2: (!) 86 % Resp Rate (set): 10 Last PACU Vitals: Vitals Value Taken Time BP 126/75 11/01/2019 1:15 PM Temp 36.4 ??C (97.5 ??F) 11/01/2019 1:15 PM Pulse 89 11/01/2019 1:15 PM Resp 16 11/01/2019 1:15 PM SpO2 98 % 11/01/2019 1:15 PM Temp src NIBP Pulse SpO2 Resp Temp Ht Rate Temp 2 Electronically Signed By: Jenelle Rojas MD, November 01, 2019, 2:56 PM Anesthesia Procedure Notes - Jenelle Rojas MD - 11/01/2019 11:48 AM CDT Associated Order(s): Peripheral/Paravetebral Block Peripheral Nerve Block Procedure Note Staff - Anesthesiologist: Jenelle Rojas MD Performed By: anesthesiologist Location: Pre-op Procedure Start/Stop TImes: 11/01/2019 9:35 AM 11/01/2019 9:38 AM patient identified, IV checked, site marked, risks and benefits discussed, informed consent, monitors and equipment checked, pre-op evaluation, at physician/surgeon's request and post-op pain management Correct Patient: Yes Correct Position: Yes Correct Site: Yes Correct Procedure: Yes Correct Laterality: Yes Site Marked: Yes Procedure details: Procedure: Adductor canal Diagnosis: Postoperative pain relief Laterality: Right Position: Supine Sterile Prep: chloraprep, mask and sterile gloves Local skin infiltration: None Needle: Insulated Needle gauge: 21 Needle length (mm): 110 Ultrasound: Yes Ultrasound used to identify targeted nerve, plexus, or vascular structure and placed a needle adjacent to it Permanent Image entered into patiient's record Abnormal pain on injection: No Blood Aspirated: No Paresthesias: No Bleeding at site: No Bolus via: Needle Infusion Method: Single Shot Complications: None Assessment/Narrative: Injection made incrementally with aspirations every (mL): 5 Patient tolerated well. No paresthesia, no heme. Negative aspiration every 3- 5mL. Continuous visualization of needle under ultrasound guidance throughout procedure. Appropriate spread of local anesthetic around nerve. 133mg (10mL) liposomal bupivacaine used. Anesthesia Preprocedure Evaluation - Jenelle Rojas MD - 11/01/2019 9:05 AM CDT Anesthesia Pre-Procedure Evaluation Patient: Jewels Hernandes Gender: female Age: [age] year old : 1990 Preoperative Diagnosis: Locking of right knee [M23.91] Procedure(s): Diagnostic Arthroscopy Knee, possible lateral meniscus repair LABS: CBC: No results found for: WBC, HGB, HCT, PLT BMP: No results found for: NA, POTASSIUM, CHLORIDE, CO2, BUN, CR, GLC COAGS: No results found for: PTT, INR, FIBR POC: Lab Results Component Value Date HCG Negative 11/01/2019 OTHER: No results found for: PH, LACT, A1C, FLORECITA, PHOS, MAG, ALBUMIN, PROTTOTAL, ALT, AST, GGT, ALKPHOS, BILITOTAL, BILIDIRECT, LIPASE, AMYLASE, FABY, TSH, T4, T3, CRP, SED Preop Vitals BP Readings from Last 3 Encounters: 11/01/19 (!) 138/91 Pulse Readings from Last 3 Encounters: No data found for Pulse Resp Readings from Last 3 Encounters: 11/01/19 14 SpO2 Readings from Last 3 Encounters: 11/01/19 100% Temp Readings from Last 1 Encounters: 11/01/19 37 ??C (98.6 ??F) (Oral) Ht Readings from Last 1 Encounters: 11/01/19 1.702 m (5' 7) Wt Readings from Last 1 Encounters: 11/01/19 107.5 kg (237 lb) Estimated body mass index is 37.12 kg/m?? as calculated from the following: Height as of this encounter: 1.702 m (5' 7). Weight as of this encounter: 107.5 kg (237 lb). LDA: Peripheral IV 11/01/19 Left Hand (Active) Site Assessment WDL 11/01/19 0857 Line Status Infusing 11/01/19 0857 Phlebitis Scale 0-->no symptoms 11/01/19 0857 Infiltration Scale 0 11/01/19 0857 Extravasation? No 11/01/19 0857 Number of days: 0 No past medical history on file. History reviewed. No pertinent surgical history. No Known Allergies Anesthesia Evaluation . Pt has had prior anesthetic. Type: General ROS/MED HX ENT/Pulmonary: (-) tobacco use, asthma and recent URI Neurologic: Cardiovascular: (+) hypertension (120s/80s)----. : . . . :. . METS/Exercise Tolerance: Comment: Crossfit training >4 METS Hematologic: Musculoskeletal: GI/Hepatic: (-) GERD Renal/Genitourinary: Endo: Psychiatric: Infectious Disease: Malignancy: Other: (+) No chance of PHYSICAL EXAM: Mental Status/Neuro: A/A/O Airway: Facies: Feasible Mallampati: I Mouth/Opening: Full TM distance: > 6 cm Neck ROM: Full Respiratory: Auscultation: CTAB Resp. Rate: Normal Resp. Effort: Normal CV: Rhythm: Regular Rate: Age appropriate Heart: Normal Sounds Edema: None Comments: Dental: Normal Dentition Assessment: ASA SCORE: 2 H&P: History and physical reviewed and following examination; no interval change. Smoking Status: Non-Smoker/Unknown NPO Status: NPO Appropriate Plan: Anes. Type: General; Peripheral Nerve Block Block Details: Single Shot; Exparel; Adductor C. Pre-Medication: None Induction: IV (Standard) Airway: LMA Access/Monitoring: PIV Maintenance: Balanced Postop Plan: Postop Pain: Opioids; Ketamine Postop Sedation/Airway: Not planned Disposition: Outpatient PONV Management: Adult Risk Factors: Female, Non-Smoker, Postop Opioids Prevention: Ondansetron, Dexamethasone CONSENT: Direct conversation Plan and risks discussed with: Patient Comments for Plan/Consent: Discussed risks of general anesthesia, including sore throat/hoarse voice, abrasions/damage to lips/tongue/teeth, nausea, rare complications (including medication reactions, cardiac, pulmonary). Discussed risks of nerve block, including nerve injury, bleeding, infection, need for general anesthesia. Jenelle Rojas MD documented in this encounter Plan of Treatment Not on filedocumented as of this encounter Procedures Procedure Name Priority Date/Time Associated Diagnosis Comme nts ANE Routine 11/01/2019 11:48 AM Results for this PERIPHERAL/PARAVETE CDT procedur e are in BRAL BLOCK the results section. documented in this encounter Results Peripheral/Paravetebral Block (11/01/2019 11:48 AM CDT) Narrative Jenelle Rojas MD - 11/01/2019 11:48 AM CDT Jenelle Rojas MD ? 11/01/2019 11:49 AM Peripheral Nerve Block Procedure Note Staff - Anesthesiologist: ??Jenelle Rojas MD Performed By: anesthesiologist Location: Pre-op Procedure Start/Stop TImes: ?? 11/01/2019 9:35 AM ?? 11/01/2019 9:38 AM ??patient identified, IV checked, site marked, risks and benefits discussed, informed consent, monitors an d equipment checked, pre-op evaluation, at physician/surgeon's reque st and post-op pain management ?Correct Patient: Yes ?Correct Position: Yes ?Correct Site: Yes ?Correct Procedure: Yes ?Correct Laterality: ??Yes ??Site Marked: ??Yes Procedure details: ??Procedure: ??Adductor canal ??Diagnosis: ??Postoperative pain relie f ??Laterality: ??Right ??Position: ??Supine ??Sterile Prep: chloraprep, mask and st erile gloves ?Local skin infiltration: ??None ??Needle: ??Insulated ??Needle gauge: ??21 ??Needle length (mm): ??110 ??Ultrasound: Yes ?Ultrasound used to identify targeted nerve, plexus, or vascular structure and placed a needle adjacent t o it ?Permanent Image entered into patiient 's record ?Abnormal pain on injection: No ?Blood Aspirated: No ?Paresthesias: ??No ??Bleeding at site: No ?Bolus via: ??Needle ??Infusion Method: ??Single Shot ??Complications: ??None Assessment/Narrative: ??Injection made incrementally with asp irations every (mL): ??5 ?? Patient tolerated well. No paresthes ia, no heme. Negative aspiration every 3-5mL. Continuous visualization of needle under ultrasound guidance throughout procedure. Appropriate spread of local anesthetic around nerve. 133mg (10mL) liposomal bupivacaine used. Jenelle Rojas MD [place] ANESTHESIA documented in this encounter Visit Diagnoses Not on filedocumented in this encounter Administered Medications Inactive Administered Medications - up to 3 most recent administrations Medication Order MAR Action Action Date Dose Rate Site bupivacaine 0.25% PF (perineural) Given 11/01/2019 9:38 AM CDT 10 mLs Perineural, PRN, Starting on Mon11/01/19 at 0938, Anesthesia Intra-op bupivacaine liposome (EXPAREL) 1.3 % LA inj Given 11/01/2019 9:38 AM CDT 10 mLs susp 10 mL 10 mL, Infiltration, DURING SURGERY, Starting on Mon11/01/19 at 0933, For 1 dose, Invert vial to re-suspend particles immediately prior to withdrawal from vial. Stable for 4 hours at room temperature once removed from vial., Pre-procedure, Choose indication (restricted use): [facility] use ceFAZolin (ANCEF) intermittent infusion 2 g in Given 0 11/01/2019 11:05 AM CDT 2 g 50 mL dextrose PREMIX Routine, 2 g, Intravenous, PRE-OP/PRE-PROCEDURE, Starting on Mon11/01/19 at 0840, For 1 dose, Give first dose within 1 hour PRIOR to incision. If patient weight is greater than or equal to 120 kg increase dose to 3 g., Indications: Perioperative Pharmacoprophylaxis, Pre-procedure dexamethasone (DECADRON) injection Given 11/01/2019 11:09 AM CDT 4 mg PRN, Administer over 1 Minutes, Starting on Mon11/01/19 at 1109, Anesthesia Intra-op fentaNYL (PF) (SUBLIMAZE) injection Given 11/01/2019 11:47 AM CDT 50 mcg Intravenous, PRN, Administer over 3-5 Minutes, Starting on Mon11/01/19 at 1100, Anesthesia Intra-op Given 11/01/2019 11:00 AM CDT 50 mcg glycopyrrolate (ROBINUL) injection Given 11/01/2019 11:00 AM CDT 0.2 mg PRN, Administer over 1-2 Minutes, Starting on Mon11/01/19 at 1100, Anesthesia Intra-op ketamine (KETALAR) injection Given 11/01/2019 11:16 AM CDT 25 mg Intravenous, PRN, Administer over 2-5 Minutes, Starting on Mon11/01/19 at 1116, Anesthesia Intra-op ketorolac (TORADOL) injection Given 11/01/2019 12:32 PM CDT 30 mg PRN, Administer over 2 Minutes, Starting on Mon11/01/19 at 1232, Anesthesia Intra-op lactated ringers infusion New Bag 11/01/2019 10:27 AM CDT at 25 mL/hr, Intravenous, CONTINUOUS, IF patient NOT on dialysis., Pre-procedure, Starting on Mon11/01/19 at 0845, Until Mon11/01/19 at 1235 New Bag 11/01/2019 8:57 AM CDT 25 mL/hr lidocaine 2% injection (MDV) Given 11/01/2019 11:08 AM CDT 100 mg Intravenous, PRN, Starting on Mon11/01/19 at 1108, Anesthesia Intra-op ondansetron (ZOFRAN) injection Given 11/01/2019 12:32 PM CDT 4 mg Intravenous, PRN, Administer over 2-5 Minutes, Starting on Mon11/01/19 at 1232, Anesthesia Intra-op propofol (DIPRIVAN) infusion Rate/Dose 11/01/2019 12:15 25 mcg/kg/min 16.1 mL/hr Intravenous, CONTINUOUS PRN, Change PM CDT Starting on Mon11/01/19 at 1108, Anesthesia Intra-op New Bag 11/01/2019 11:08 AM CDT 50 mcg/kg/min 32.3 mL/hr propofol (DIPRIVAN) injection 10 mg/mL v ial Given 11/01/2019 11:09 AM CDT 20 mg Intravenous, PRN, Starting on Mon11/01/19 at 1108, Anesthesia Intra-op Given 11/01/2019 11:08 AM CDT 180 mg documented in this encounter
--- OUTSIDE RECORDS SUMMARY | 2022-01-25 09:07 | XMS_ITS | Encounter Summary ---
:1990 Author Organization [place] Address [facility] [place] [address] Care Team Providers Name Role Phone Unavailable Primary Care Provider Unavailable Encounter Details Date Type Department Care Team Description 10/15/2019 Travel Social History Tobacco Use Types Packs/Day [...]
--- OUTSIDE RECORDS SUMMARY | 2022-01-25 09:07 | XMS_ITS | Encounter Summary ---
:1990 Author Organization [place] Address [address] [facility] [place] [address] Care Team Providers Name Role Phone Unavailable Primary Care Provider Unavailable Reason for Visit [facility] (Routine) - Closed Specialty Diagnoses / Procedures Referred By Contact Refer red To Contact Physical Therapist / Diagnoses R patellar instability/ Dr James @ [facility]/ [facility] Michelle James, Aubrie Arbloeda, PT Physical Therapy Procedures EXTREMITY INITIAL MD SHAYNA PASCUAL [address] [facility] [address] [place], [place] [address] [address] [place] [id number] Phone: Fax: Referral ID Status Reason Start Date Expiration Date Visits Requ ested Visits Authorized [id number] Closed 10/15/2019 05/14/2020 40 40 Encounter Details Date Type Department Care Team Description 10/15/2019 Therapy Visit [facility] Aubrie Wu, Acute pain of right Rehabilitation Services PT knee [facility] [place] on SHAYNA PASCUAL [address] [facility] [address] [place] [phone] Social History Tobacco Use Types Packs/Day Years Used Date Never Assessed Sex Assigned at Date Recorded Female 10/11/2019 5:38 PM CDT COVID-19 Exposure Response Date Recorded In the last month, have you been in contact with No / Unsure 10/15/2019 12:16 PM CDT someone who was confirmed or suspected to have Coronavirus / COVID-19? documented as of this encounter Progress Notes Aubrie Garnett, PT - 10/15/2019 12:30 PM CDT PHYSICAL THERAPIST IMPRESSION: Luanne presents to physical therapy with complaints of instability at her knee. These events have all happened while she is either 1) kneeling or 2) rising to stand from adeep squat. She does report swelling and pain and difficulty bearing weight after they occur. She has core and proximal hip weakness and lacks confidence with her single leg squatting - she is unwilling to perform a SL squat without a chair behind her as she does not trust her knee. She does not have a j-sign, no apprehension with lateral translation of the patella. She has full motion of her knee both into hyperextension and flexion and no effusion. Her signs and symptoms are not fully consistentwith true patellar instability. She would benefit from continue work on strength as well as buildingconfidence and control in her SL tasks. She needs to work on core strength as well as proximal hip. A L>M glide tape technique improved her confidence in her knee but she was not having pain with this motion prior to the taping. I provided the patient with videos of the tape technique to try at home for a longer trial of symptom management. RESPONSIVENESS TO FRANCIS TAPE: Francis Taping Trial Pre/posttest activity SL squat Taping technique(s) trialed L>M glide Numerical Pain Scale 0/10 to 0/10 Level of reported stability (0/10= full confidence in knee; 10/10=no confidence in knee) 5/10 to 3/10 Improvement in movement pattern with tape on No change - still required the chair behind her. PT MODIFIABLE FACTORS PRESENT NOT PRESENT Proximal LE/Trunk mm weakness X Quadriceps muscle dysfunction/weakness X Poor postural stability X Poor dynamic movement patterns X Restricted ankle DF X Previous PF PT Interventions X PATIENT BONY ALIGNMENT SUSPICIOUS FOR: (to be determined by MD and imaging studies): ??? Pes planus Physical Therapy Initial Evaluation: Subjective History History of Presenting Complaint: Presenting Complaint: Right knee instability Primary Symptoms: primarily instability symptoms, pain with/following instability events and swelling following instability events Details of most recent instability episode: Date: June 2019, Knee: Right, Mechanism: Was kneeling on the ground and couldn't stand up. Did you fall?: No Mechanism of patellar reduction: spontaneous reduction Joint reaction to event: Moderate swelling and pain, on crutches Did you seek medical care/how soon/what kind?: ED - x-rays Details of primary dislocation: 28 years old, Knee: Right, Mechanism: Squatted down to talk to someone, it made a popping noise, couldn't put weight on it. Did you fall?: No Mechanism of patellar reduction: spontaneous reduction Joint reaction to event: 7 swelling, pain and disabled by injury x 7 days Did you seek medical care/how soon/what kind?: ED > X-rays Instability behavior between 1st event and most recent event: Has had 4 events over the past year. Current frequency of instability events: Subluxation events: 4 times/year Joe dislocation events: None Compared to past: more often Prior Tests for Current Complaint: x-ray and MRI Prior Treatment for Current Complaint: PT November 2018-December 2018 (helpful - got stronger). Symptom Behavior & Functional Limitations: Constant or Activity/Position Dependent?: activity/position dependent. Time of day dependent?: No Change in symptoms since onset: no change Worst pain = 6/10 with kneeling + event. Symptom Aggravation/Functional Limitations (due to current complaint): 3 worst activities: Squatting (heavy) (Prior: I) , Jumping (Prior: (I), Running/Jogging (Prior: I) Best pain = 0/10. Symptom Relief: Activity modification - stairs are OK, walking is ok . Time frame referenced for prior level of function: Prior to symptom onset/injury date noted above. 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 General Physical Activity Level (within past year): [employer], jogging. General health status (as reported by patient): good. Other orthopaedic history: See Epic Chart. Lower Extremity/Patellofemoral Exam Dynamic Movement Screen: 2 leg stance: Forward facing patella, equal weight bearing. 2 leg squat: Excessive anterior knee excursion (reduced posterior hip excursion), Restricted ankle DF observed and Reduced squat depth d/t reported symptoms at knee 1 leg stance: Right: proprioceptive challenge Left: proprioceptive challenge 1 leg squat: Right: proprioceptive challenge Left: proprioceptive challenge Gait: Normal, non-antalgic Patellofemoral Joint Special Testing: Static Patellar Positioning in 90 degrees KF (Seated) Right: Mild lateral translation Left: Mild lateral translation Patellar tracking with OKC knee extension (Seated) Right: Crepitus Left: Crepitus Static Patellar Positioning in full extension (Supine) Right: Mild lateral tilt and Mild lateral translation Left: Mild lateral tilt and Mild lateral translation Patellar Quadrant Mobility Test (Med:Lat) Right: 1:2 Left 1:2 Basic Muscle Activation: Quadriceps: Right: Normal, Left: Normal Transverse abdominis Poor control with DL bridge testing Knee Joint Effusion (Stroke Test Assessment): Right: None; Left: None Palpation: Tender to palpation at the following structures: Medial joint line NOT tender to palpation at the following structures: Patellar boarders, patellar tendon Lower Extremity Muscle Strength (x/5) Right Left Hip ER 4+/5 4+/5 Hip IR 5-/5 5-/5 Hip ABD 4+/5 4+/5 Hip ADD NT/5 NT/5 Hip Ext 4/5 4/5 Knee Flex 5/5 5/5 Lower Extremity Flexibility Screen: Right Left Hamstring + + Hip Flexor - - ITB/Lat Hip - - Quadriceps NT NT Gastroc/ Soleus + + Assessment/Plan: Patient is a 29 year old female with right side knee complaints. Patient has the following significant findings with corresponding treatment plan. Diagnosis 1: Right patellar instability Pain - hot/cold therapy, manual therapy, STS, splint/taping/bracing/orthotics, self management and education Decreased strength - therapeutic exercise, therapeutic activities and home program Impaired balance - neuro re-education, therapeutic activities and home program Decreased proprioception - neuro re-education, therapeutic activities and home program Impaired muscle performance - neuro re-education and home program Decreased function - therapeutic activities and home program Therapy Evaluation Codes: 1) History comprised of: Personal factors that impact the plan of care: None. Comorbidity factors that impact the plan of care are: None. Medications impacting care: None. 2) Examination of Body Systems comprised of: Body structures and functions that impact the plan of care: Knee. Activity limitations that impact the plan of care are: Lifting, Running, Sports, Squatting/kneeling, Stairs and Walking. 3) Clinical presentation characteristics are: Stable/Uncomplicated. 4) Decision-Making Low complexity using standardized patient assessment instrument and/or measureable assessment of functional outcome. Cumulative Therapy Evaluation is: Low complexity. Previous and current functional limitations: (See Goal Flow Sheet for this information) Short term and joint terminal attack controller goals: (See Goal Flow Sheet for this information) Communication ability: Patient appears to be able to clearly communicate and understand verbal and written communication and follow directions correctly. Treatment Explanation - The following has been discussed with the patient: RX ordered/plan of care Anticipated outcomes Possible risks and side effects This patient would benefit from PT intervention to resume normal activities. Rehab potential is good. Frequency: 1 X week, once daily Duration: for 1 weeks Discharge Plan: Achieve all LTG. Independent in home treatment program. Reach maximal therapeutic benefit. Please refer to the daily flowsheet for treatment today, total treatment time and time spent performing 1:1 timed codes. Answers for HPI/ROS submitted by the patient on 10/14/2019 History Reported by Patient Reason for Visit:: My right knee When problem began:: 10/16/2018 How problem occurred:: I squatted down then stood up. When I stood up, I heard a pop and then couldn???t move my knee or walk. 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
--- OUTSIDE RECORDS SUMMARY | 2022-01-25 09:07 | XMS_ITS | Encounter Summary ---
:1990 Author Organization [place] Address [address] [place] [address] Care Team Providers Name Role Phone Unavailable Primary Care Provider Unavailable Reason for Visit Reason Onset Date Comments Preop discussion 10/24/2019 Encounter Details Date Type Department Care Team Description 10/24/[address] [facility] Dawn Grady RN Preop discussion [address] [place] [address] 4th Floor [place] [phone] Social History Tobacco Use Types Packs/Day Years [...] this encounter Miscellaneous Notes Telephone Encounter - Dawn Grady RN - 10/30/2019 8:[address] Peters, patient does not have to stop her control pills. He will place her on an aspirin after surgery for DVT prophylaxis. Called patient to update her; she expressed understanding. Telephone Encounter - Dawn Grady RN - 10/24/2019 11:17 AM CDT Reached out to patient to discuss her preop packet. She has not yet received it in the mail and willcall if she does not get it by tomorrow. We reviewed showering, where to get the preop scrub, what medications to stop, NPO, the need for a dumpster driver and someone to stay with her for 24 hours. Patient heather own crutches and will bring them with day of surgery. We discussed her control pills; patient states she uses them to regulate her cycle and is not sure how to come off them. Aircraft Refueller messaged Dr. Peters to get feedback if he wants her off these or will give her aspirin postop for DVT prophylaxis. Will reach out to patient with an update. Patient expressed understanding. documented in this encounter Plan of Treatment Not on filedocumented as of this encounter Visit Diagnoses Not on filedocumented in this encounter
--- OUTSIDE RECORDS SUMMARY | 2022-01-25 09:07 | XMS_ITS | Encounter Summary ---
:[address] [facility] [facility] [place] [address] Care Team Providers Name Role Phone Unavailable Primary Care Provider Unavailable Encounter Details Date Type Department Care Team Description 11/11/2019 Travel Social History Tobacco Use Types Packs/Day [...]
--- OUTSIDE RECORDS SUMMARY | 2022-01-25 09:07 | XMS_ITS | Encounter Summary ---
:1990 Author Organization [place] Address [address] [place] [address]. [place] [address] Care Team Providers Name Role Phone Unavailable Primary Care Provider Unavailable Encounter Details Date Type Department Care Team Description 07/05/2019 Medical Correspondence [facility] Scan, CLINIC REFERRAL Health Info [facility] Non-Provider [facility] [address] [place] [phone] Social History Tobacco Use Types Packs/Day Years Used Date Never Assessed Sex Assigned at Date Recorded Female 10/11/2019 5:38 PM CDT documented as of this encounter Plan of Treatment Not on filedocumented as of this encounter Visit Diagnoses Not on filedocumented in this encounter
--- OUTSIDE RECORDS SUMMARY | 2022-01-25 09:07 | XMS_ITS | Encounter Summary ---
:1990 Author Organization [place] Address [address] [place] [address] Care Team Providers Name Role Phone Unavailable Primary Care Provider Unavailable Reason for Referral [facility] (Routine) - Closed Specialty Diagnoses / Procedures Referred By Contact Refer red To Contact Diagnoses Locking of right knee Jose Manuel Peters MD [address] [place] [phone] Referral ID Status Reason Start Date Expiration Date Visits Requ ested Visits Authorized [id number] Closed 10/24/2019 10/23/2020 1 1 Encounter Details Date Type Department Care Team Description 10/24/2019 Orders Only [facility] Orthopaedic Jose Manuel Peters cking of right knee Clinic MD Arjun (Primary Dx) [address] [place] [address] 4th [place] [phone] Social History Tobacco Use Types Packs/Day Years [...] Type Priority Associated Diagnoses Order S chedule PHYSICAL THERAPY Referral Routine Locking of right knee 1 Occurrences starting REFERRAL (Internal) 10/24/19 20 until 10/23/2020 documented as of this encounter Visit Diagnoses Diagnosis Locking of right knee - Primary documented in this encounter
--- OUTSIDE RECORDS SUMMARY | 2022-01-25 09:07 | XMS_ITS | Encounter Summary ---
:1990 Author Organization [place] Address [address] [facility] [place] [address] Care Team Providers Name Role Phone Unavailable Primary Care Provider Unavailable Reason for Visit Auth/Cert Specialty Diagnoses / Procedures Referred By Contact Refer red To Contact Surgery Diagnoses Locking of right knee Locking of right knee [M23.91] [facility] Or Procedures HC KNEE SCOPE,MED/LAT MENISCUS REPAIR HC KNEE SCOPE,MED+LAT MENIS REPAIR Diagnostic Arthroscopy Knee, possible lateral meniscus repair [address] [facility] [address] [place] [address] Phone: Fax: Referral ID Status Reason Start Date Expiration Date Visits Requ ested Visits Authorized [id number] 1 1 Encounter Details Date Type Department Care Team Description 11/01/[address] [facility] Surgery and Jose Manuel Peters Arthroscopy Procedure Center MD Arjun Knee--Right, lateral [address] meniscus repair 5th Floor [place], [place] [id number] [phone] Surgery Details Date/Time Status Location OR Service Patient Class Case Case Trauma Class Type Case? 11/01/19 10:20 Posted [facility] OR OR 07 Orthopedics Outpatient AM Panel 1 Procedure [facility] Anes Op Region Wound Class Commen ts Diagnostic Arthroscopy Knee--Right, Right Choice Knee I-Clean lateral meniscus repair Surgeon Surgeon Role Service Panel Jose Manuel Peters MD Primary Orthopedics 1 Jt Vidales MD Fellow - Assisting Orthopedics 1 Special Needs /Arthrex Yo V [phone] 10/29 lmCOVID Negative Joey Turpin Abner 4 documented in this encounter Social History Tobacco [...] Sign Reading Time Taken Comments Blood Pressure 122/74 11/01/2019 9:39 AM CDT Pulse 78 11/01/2019 9:39 AM CDT Temperature 37 ??C (98.6 ??F) 11/01/2019 8:27 AM CDT Respiratory Rate 16 11/01/2019 9:39 AM CDT Oxygen Saturation 100% 11/01/2019 9:39 AM CDT Inhaled Oxygen Concentration - - Weight 107.5 kg (237 lb) 11/01/2019 8:27 AM CDT Height 170.2 cm (5' 7) 11/01/2019 8:27 AM CDT Body Mass Index 37.12 11/01/2019 8:27 AM CDT documented in this encounter Discharge Instructions Discharge InstructionsSaurabh Sanchez RN - 11/01/2019 12:37 PM CDT Images from the original note were not included. [facility] Ambulatory Surgery and Procedure Center Home Care Following Anesthesia For 24 hours after surgery: 1. Get plenty of rest. A responsible adult must stay with you for at least 24 hours after you leave the surgery center. 2. Do not drive or use heavy equipment. If you have weakness or tingling, don't drive or use heavy equipment until this feeling goes away. 3. Do not drink alcohol. 4. Avoid strenuous or risky activities. Ask for help when climbing stairs. 5. You may feel lightheaded. IF so, sit for a few minutes before standing. Have someone help you getup. 6. If you have nausea (feel sick to your stomach): Drink only clear liquids such as apple juice, lala thong, broth or 7-Up. Rest may also help. Be sure to drink enough fluids. Move to a regular diet asyou feel able. 7. You may have a slight fever. Call the doctor if your fever is over 100??F (37.7??C) (taken under the tongue) or lasts longer than 24 hours. 8. You may have a dry mouth, a sore throat, muscle aches or trouble sleeping. These should go away after 24 hours. 9. Do not make important or legal decisions. Today you received an Exparel block to numb the nerves near your surgery site. This is a block usinglocal anesthetic or numbing medication injected around the nerves to anesthetize or numb the area supplied by those nerves. This block is injected into the muscle layer near your surgical site. This medication may numb the location where you had surgery up to 72 hours. If your surgical site is an arm or leg you should be careful with your affected limb, since it is possible to injure your limb without being aware of it due to the numbing. Until full feeling returns, you should guard against bumping or hitting your limb, and avoid extreme hot or cold temperatures on the skin. As the block wears off, the feeling will return as a tingling or prickly sensation near your surgical site. You will experince more discomfort from your incision as the feeling returns. You may want to take a pain pill (anarcotic or Tylenol if this was prescribed by your surgeon) when you start to experience mild pain before the pain beomes more severe. If your pain medications do not control your pain, you should notify your surgeon. Tips for taking pain medications To get the best pain relief possible, remember these points: ?? Take pain medications as directed, before pain becomes severe. ?? Pain medication can upset your stomach: taking it with food may help. ?? Constipation is a common side effect of pain medication. Drink plenty of fluids. ?? Eat foods high in fiber. Take a stool softener if recommended by your doctor or pharmacist. ?? Do not drink alcohol, drive or operate machinery while taking pain medications. ?? Ask about other ways to control pain, such as with heat, ice or relaxation. Tylenol/Acetaminophen Consumption To help encourage the safe use of acetaminophen, the makers of TYLENOL?? have lowered the maximum daily dose for single-ingredient Extra Strength TYLENOL?? (acetaminophen) products sold in the [place] from 8 pills per day (4,000 mg) to 6 pills per day (3,000 mg). The dosing interval has also changed from2 pills every 4-6 hours to 2 pills every 6 hours. ??? If you feel your pain relief is insufficient, you may take Tylenol/Acetaminophen in addition to your narcotic pain medication. ??? Be careful not to exceed 3,000 mg of Tylenol/Acetaminophen in a 24 hour period from all sources. ??? If you are taking extra strength Tylenol/acetaminophen (500 mg), the maximum dose is 6 tablets in 24 hours. ??? If you are taking regular strength acetaminophen (325 mg), the maximum dose is 9 tablets in 24 hours. Call a doctor for any of the followin. Signs of infection (fever, growing tenderness at the surgery site, a large amount of drainage or bleeding, severe pain, foul-smelling drainage, redness, swelling). 2. It has been over 8 to 10 hours since surgery and you are still not able to urinate (pass water). 3. Headache for over 24 hours. 4. Numbness, tingling or weakness the day after surgery (if you had spinal anesthesia). 5. Signs of Covid-19 infection (temperature over 100 degrees, shortness of breath, cough, loss of taste/smell, generalized body aches, persistent headache, chills, sore throat, nausea/vomiting/diarrhea) Your doctor is: Dr. Jose Manuel Peters, Orthopaedics: [phone] Or dial [phone] and ask for the resident clinical nurse occupational medicine for: Orthopaedics For emergency care, call the: [facility] [place] [facility]: [phone] (TTY for hearing impaired: [phone]) Information about liposomal bupivacaine (Exparel) What is Liposomal Bupivacaine? Liposomal Bupivacaine is a numbing medication that can help you manage your pain after surgery. Thismedication is similar to novacaine, which is often used by the dentist. Liposomal bupivacaine is released slowly and can help control pain for up to 72 hours. What is the purpose of Liposomal Bupivacaine? ?? To manage your pain after surgery ?? To help you sleep better, take deep breaths, walk more comfortable, and feel up to visiting with others How is the procedure done? ?? Liposomal bupivacaine is a medication given by an injection. ?? It is usually given right before your surgery. If this is the case, you will be awake or sedated,but you should experience minimal pain during the procedure. ?? For some people, the injection may be given at the very end of your surgery. It all depends on the type of surgery and your situation. ?? The procedure usually takes about 5-15 minutes. An ultrasound machine will help the anesthesiologist insert it in the right place or the surgeon will inject it under direct vision. ?? A needle is used to place the numbing medication under your skin. It provides pain relief by numbing the tissue in the area where your surgeon will make the incision. What can I expect? ?? You may experience numbness, tingling, or a feeling of heaviness around the area that was injected. ?? If you experience any of the follow symptoms IMMEDIATELY CALL THE REGIONAL ANESTHESIA PAIN SERVICE: ?? Numbness or tingling occurs in areas other than around the injection site ?? Blurry vision ?? Ringing in your ears ?? A metallic taste in your mouth PAGE: Dial [phone]. When prompted, enter the following 4-digit ID number: [id number]. You will be prompted to enter your phone number; and then enter the # sign. The clinician clinical nurse occupational medicine will call you back. OR CALL: Dial [phone]. Let the hospital waste machine operator know that you are having a problem with a nerve block and that you would like to speak to the regional anesthesia pain service right away. You should not receive any other type of numbing medication within 4 days after receiving liposomal bupivacaine unless your anesthesiologist approves. Post Operative Instructions: Regional Anesthetic for Lower Extremity with Liposomal Bupivacaine General Information: Regional anesthesia is when local anesthetic or ???numbing?? medication is injected around the nerves to anesthetize or ???numb?? the area supplied by that set of nerves. It is a type of analgesia used to control pain and decreases the need for narcotics following surgery. Types of Regional Blocks: Femoral: A block injected into the groin area of the operative leg of a patient having thigh or kneesurgery. Adductor Canal: A block injected into the mid thigh of the operative leg of a patient having knee orankle surgery. Popliteal or Distal Sciatic: A block injected into the back of the knee of the operative leg of patients having foot or ankle surgery. Ankle: An anesthetic medication is injected into the ankle of the operative leg of a patient having foot or toe surgery. Procedure: The type of anesthesia your doctor used to numb your leg will usually not wear off for 24-48 hours, but may last as long as 72 hours. You should be careful during that period, since it is possible to injure your leg without being aware of the injury. While your leg is numb you should: ??? Use crutches (minimal weight bearing until your motor and strength is completely back to normal) ??? Avoid striking or bumping your leg ??? Avoid extreme hot or cold Discomfort: You will have a tingling and prickly sensation in your leg as the feeling begins to return; you can also expect some discomfort. The amount of discomfort is unpredictable, but if you have more pain than can be controlled with pain medication, you should notify your physician. Pain Medicine: Begin taking your oral pain pills before bedtime and during the night to avoid a sudden onset of pain as part of the block wears off. Do not engage in drinking, driving, or hazardous occupations while taking pain medication. Safety Tips for Using Crutches Crutch Fit: ??? Assume good standing posture with shoulders relaxed and crutch tips 6-8 inches out from the sideof the foot. ??? The underarm pad should fall 2-3 fingers width below the armpit. ??? The handgrip is positioned level with the wrist to allow 30?? flexion at the elbow. Safety Tips: ??? Bear weight on your hands, not on your armpits. ??? Do not add extra padding to the underarm pad. This will, in effect, lengthen the crutches and increase risk of nerve injury. ??? Wear flat, properly fitting shoes. Do not walk in stocking feet, high heels or slippers. ??? Household hazards: --Throw rugs should be removed from floors. --Stairs should be cleared of obstacles. --Use extra caution on slippery, highly polished, littered or uneven floor surfaces. --Check for electric cords. ??? Check crutch tips for excessive wear and keep wing nuts tight. ??? While walking, look forward with ???head up?? and ???eyes open.?? Take equal length steps. ??? Use BOTH crutches. Stairs Sequence: ??? UP: Good leg first, followed by ???bad?? leg, then crutches. ??? DOWN: Crutches, followed by ???bad?? leg, good leg. Walking with Crutches: ??? Move both crutches forward at the same time. ??? Non-Weight Bearing (NWB): Hold the involved leg up and swing through the crutches with the involved leg. The involved leg does not touch the floor. ??? Toe Touch Weight Bearing (TTWB): Move the involved leg forward. Rest it lightly on the floor forbalance only. Step through the crutches with the uninvolved leg. ??? Partial Weight Bearing (PWB): Move the involved leg forward. Step down the weight of the leg only. Step through the crutches with the uninvolved leg. Weight Bearing As Tolerated (WBAT): Move the involved leg forward. Put as much pressure through the involved leg as you can tolerate comfortably. Then step through the crutches with the uninvolved leg. documented in this encounter Medications at Time of Discharge Medication Sig Dispensed Refills Start Date End Date lisinopril (ZESTRIL) 10 Take 1 tablet by 0 2019 MG tablet mouth daily Melatonin 5 MG CHEW Take 1 tablet by 0 12/13/2018 mouth as needed norethindrone (MICRONOR) Take 1 tablet by 0 01/05 0.35 MG tablet mouth daily acetaminophen (TYLENOL) Take 2 tablets (650 120 tablet 0 12/23/2019 325 MG tabletIndications: mg) by mouth every Locking of right knee 4 hours ondansetron (ZOFRAN-ODT) Take 1-2 tablets 4 tablet 0 10/3112/23/2019 4 MG ODT tabIndications: (4-8 mg) by mouth Locking of right knee every 8 hours as needed for nausea oxyCODONE (ROXICODONE) 5 Take 1-2 tablets 30 tablet 0 10/3112/23/2019 MG tabletIndications: (5-10 mg) by mouth Locking of right knee every 4 hours as needed for moderate to severe pain phentermine (ADIPEX-P) 15 Take 1 capsule by 0 10/201912/23/2019 MG capsule mouth daily senna-docusate Take 1-2 tablets by 30 tablet 0 11/01/2019 0 12/23/2019 (SENOKOT-S/PERICOLACE) mouth 2 times daily 8.6-50 MG tabletIndications: Locking of right knee documented as of this encounter Nursing Notes Cyndee Gaytan RN - 11/01/2019 9:42 AM CDT Patient received right side Adductor nerve block with Exparel. Fentanyl 50mcg and Versed 1mg given. Tolerated procedure well. documented in this encounter Miscellaneous Notes Op Note - Jose Manuel Peters MD - 11/01/2019 1:06 PM CDT PREOPERATIVE DIAGNOSIS: 1. Hypermobile lateral meniscus right knee POSTOPERATIVE DIAGNOSIS: 1. Unstable tear, peripheral, of posterior horn and mid body of lateral meniscus PROCEDURE: 1. Examination under anesthesia right knee 2. Right knee arthroscopy 3. Inside-out lateral meniscus repair DATE OF SURGERY: 11/01/2019 SURGEON: Jose Manuel Peters MD ASSISTANT ADMINISTRATOR: None. RESIDENT OR FELLOW: Jt Vidales DO OPERATIVE INDICATIONS: Jewels Hernandes is a pleasant 29 year old female who I saw through my orthopedic clinic with a history, physical, imaging consistent with hypermobile lateral meniscus with instability and locking catching symptoms when she perform deep flexion. She was ultimately seen by my partner, offered surgery had a chance to review her images and I agreed to meet her on the day of surgery. I was able to do this and questions were answered prior to the surgical procedure. I reviewed with the patient the risks, benefits, complications, techniques and alternatives to surgery. We reviewed theexpected course of recovery and the potential expected outcomes. The patient understood both the risks and benefits and desired to proceed despite the risks. OPERATIVE DETAILS: In the preoperative area the patient's informed consent was reviewed and they desired to proceed. The right leg was marked and the patient was in agreement. The patient was taken to the operating room where a timeout was performed and all parties were in agreement. Preoperative antibiotics were given within 1 hour of the time of incision. The patient was placed in the supine position and surrendered to LMA anesthesia. No tourniquet was applied. Egg crate was placed beneath the well leg and a side post was utilized. The operative leg was prepped and draped in the usual sterile fashion. Examination Under Anesthesia: Range of motion was 0 to 135 degrees. Stable to varus and valgus stress testing. Stable anterior posterior drawer testing. No pivot shift. Melvin 0 Anterior medial anterolateral arthroscopic portals were created diagnostic arthroscopy was performedto find findings: Medial femoral condyle, medial tibial plateau, medial meniscus was normal. Lateralmeniscus did show a vertical tear of the far periphery with clear instability to probing. Lateral femoral condyle, lateral tibial plateau was normal. ACL PCL normal. Medial patella facet grade 2 fissures. Trochlea largely normal. At this time we elected to perform a repair. Do this a 3 cm incision wasmade centered on the palpable fibular collateral ligament carried down to the skin and subcutaneous tissues meticulous hemostasis was insured. Popliteal retractor was then placed after opening the space between the IT band and the biceps femoris. A series of 7, 2-0 fiber tape sutures on meniscus needles were then placed in a vertical fashion above and vertical fashion below this provide excellent compression and excellent stability of the meniscus. Copious irrigation was performed an a layered closure was initiated, sterile dressings were applied and the patient was transferred to the recovery room in stable condition with stable vital signs. ESTIMATED BLOOD LOSS: 5 mL. TOURNIQUET TIME: No tourniquet was placed. COMPLICATIONS: None apparent. DRAINS: None. SPECIMENS: None. POSTOPERATIVE PLAN: 1. Weightbearing as tolerated with hinged knee brace locked in full extension x6 weeks 2. At 6 weeks began weightbearing as tolerated with brace on and unlocked and wean from crutches when able 3. No motion for 1 week then range of motion 0 to 90 degrees 4. At 6 weeks begin range of motion as tolerated no hyperflexion to at least 3 months no kneeling orsquatting until 4 to 6 months 5. Shower on day 3. No submerging the wounds. 6. Okay to run at 3 months. documented in this encounter Plan of Treatment Not on filedocumented as of this encounter Procedures Procedure Name Priority Date/Time Associated Comments Diagnosis ARTHROSCOPY KNEE WITH Routine 11/01/2019 8:25 AM Locking of ri ght MENISCAL REPAIR CDT knee HCG QUALITATIVE URINE STAT 11/01/2019 Result s for this POCT procedure are i n the results section. documented in this encounter Results hCG qualitative urine POCT (11/01/2019) P athologist Signature HCG Qual Urine Negative neg Internal QC OK Yes Specimen (Source) Anatomical Location Collection Method / Collectio n Time Received Time / Laterality Volume Urine specimen 11/01/2019 (specimen) Jenelle Rojas MD LAB - ENTER/EDIT POCT documented in this encounter Visit Diagnoses Diagnosis Locking of right knee - Primary Locking of right knee documented in this encounter Admitting Diagnoses Diagnosis Locking of right knee documented in this encounter Administered Medications Inactive Administered Medications - up to 3 most recent administrations Medication Order MAR Action Action Date Dose Rate Site acetaminophen (TYLENOL) tablet 975 Given 11/01/2019 8:49 AM CDT 975 mg mg 975 mg, Oral, ONCE, On Mon11/01/19 at 0845, For 1 dose, Maximum acetaminophen dose from all sources = 75 mg/kg/day not to exceed 4 grams/day., Pre-procedure bupivacaine 0.25 % - Given 11/01/2019 11:33 AM 25 mLs Operative Site/Surgical EPINEPHrine 1:200,000 CDT Sit e injection PRN, Starting on Mon11/01/19 at 1133, Intra-procedure fentaNYL (PF) (SUBLIMAZE) injection 25-5 0 mcg Given 11/01/2019 1:08 PM CDT 25 mcg 25-50 mcg, Intravenous, EVERY 5 MIN PRN, other, acute pain while in PACU., Starting on Mon11/01/19 at 1235, MAX cumulative dose = 250 mcg. Use fentaNYL (SUBLIMAZE) initially, as a short acting agent for acute pain control. If insufficient, or a longer acting agent is needed, begin morphine or HYDROmorphone (DILAUDID) if ordered. For ordered IV doses 1-100 mcg give IV Push undiluted over a minimum of 3-5 minutes., PACU Given 11/01/2019 1:04 PM CDT 25 mcg Given 11/01/2019 12:59 PM CDT 25 mcg fentaNYL (PF) (SUBLIMAZE) injection 25-5 0 mcg Given 11/01/2019 9:34 AM CDT 50 mcg 25-50 mcg, Intravenous, EVERY 2 MIN PRN, other, acute pain. Max cumulative dose 250 mcg. , Starting on Mon11/01/19 at 0933, Caution: may have synergistic effect when used with midazolam (VERSED). If inadequate response may repeat 25-50 mcg IV slowly Q 5 minutes PRN pain (Maximum of 200 mcg total dose in 60 minutes.) Doses can be exceeded under direct oversight of patient by provider.Only given for procedural sedation while provider present. Nurse to discontinue this medication when procedure complete. For ordered IV doses 1-100 mcg give IV Push undiluted over a minimum of 3-5 minutes., Pre-procedure gabapentin (NEURONTIN) capsule 300 mg Given 11/01/2019 8:49 AM CDT 300 mg 300 mg, Oral, ONCE, On Mon11/01/19 at 0845, For 1 dose, Give ONLY ONCE in pre-op. Confirm that patient has not already received a PRE OP dose of gabapentin (NEURONTIN). This dose is in addition to patient's home medication dose, if any., Pre-procedure lactated ringers infusion New Bag 11/01/2019 10:27 AM CDT at 25 mL/hr, Intravenous, CONTINUOUS, IF patient NOT on dialysis., Pre-procedure, Starting on Mon11/01/19 at 0845, Until Mon11/01/19 at 1235 New Bag 11/01/2019 8:57 AM CDT 25 mL/hr midazolam (VERSED) injection 1-2 mg Given 11/01/2019 9:33 AM CDT 1 mg 1-2 mg, Intravenous, EVERY 4 MIN PRN, sedation, Starting on Mon11/01/19 at 0933, Caution: when used with opioids, may need lower doses. If inadequate response may repeat 1 mg IV slowly Q 4 minutes PRN sedation until desired response (Maximum of 5 mg total dose.) Doses can be exceeded under direct oversight of patient by provider. Nurse to discontinue this medication when procedure complete. This drug may cause significant respiratory depression. Monitor respiratory status and vital signs carefully for 1 hour after each dose., Pre-procedure oxyCODONE (ROXICODONE) tablet 5 mg Given 11/01/2019 12:59 PM CDT 5 mg 5 mg, Oral, EVERY 4 HOURS PRN, moderate to severe pain, Starting on Mon11/01/19 at 1235, Max: 5 mg for opioid-na??ve patient., Post-procedure documented in this encounter
--- OUTSIDE RECORDS SUMMARY | 2022-01-25 09:07 | XMS_ITS | Encounter Summary ---
:1990 Author Organization [place] Address [facility] [place] [address] Care Team Providers Name Role Phone Unavailable Primary Care Provider Unavailable Reason for Visit Diagnostic Imaging MRI (Routine) - Closed Specialty Diagnoses / Procedures Referred By Contact Refer red To Contact Diagnoses Right knee pain, unspecified chronicity Michelle James MD Procedures MR Knee Right w/o Contrast [address] [id number] 5 Referral ID Status Reason Start Date Expiration Date Visits Requ ested Visits Authorized [id number] Closed 10/15/2019 10/14/2020 1 1 Encounter Details Date Type Department Care Team Description 10/15/2019 [facility] Michelle James Right knee pain, Procedure Center BHAVANI Khan MD unspecified [address] [place] [address] [address] [address] [place], [place] [phone] (Work) [phone] Social History Tobacco Use Types Packs/Day Years [...] Name Priority Date/Time Associated Diagnosis Comme nts MR KNEE RIGHT W/O Routine 10/15/2019 3:35 PM Right knee pain, Results for this CONTRAST CDT unspecified procedure are i n chronicity the results section. documented in this encounter Results MR Knee Right w/o [...] Comparison: Radiographs same-day, outsid e MRI 6 19 Findings: MENISCI: Medial meniscus: Intact. Lateral meniscus: [...] chondromalacia. ANCILLARY FINDINGS None. Procedure Note Darrell Fernandez DO - 10/15/19 20 MR right knee without [...] documented in this encounter Visit Diagnoses Diagnosis Right knee pain, unspecified chronicity documented in this encounter
--- OUTSIDE RECORDS SUMMARY | 2022-01-25 09:07 | XMS_ITS | Encounter Summary ---
:1990 Author Organization [place] Address [address] [place] [address] Care Team Providers Name Role Phone Unavailable Primary Care Provider Unavailable Reason for Referral Consultation (Routine) - Closed Specialty Diagnoses / Procedures Referred By Contact Refer red To Contact Diagnoses Patellar instability of right knee Generic External Data [facility] [address] [place] [phone] Phone: Fax: Referral ID Status Reason Start Date Expiration Date Visits Requ ested Visits Authorized [id number] Closed 07/05/2019 05/14/2020 40 40 Scheduling Instructions Referred by Dr. Renato Calles at [facility] to Dr. James MOMETER TUNER Encounter Details Date Type Department Care Team Description 07/05/2019 Transcribe Orders GENERIC EXTERNAL Provider, Generic P atellar instability DATA DEPARTMENT External Data of right kn ee (Primary Dx) Social History Tobacco Use Types Packs/Day Years Used Date Never Assessed Sex Assigned at Date Recorded Female 10/11/2019 5:38 PM CDT documented as of this encounter Plan of Treatment Scheduled Referrals Name Type Priority Associated Diagnoses [facility] Referral Routine Patellar instability of Ordered: 07/05/2019 REFERRAL right knee documented as of this encounter Visit Diagnoses Diagnosis Patellar instability of right knee - Vanesa anny Other specified disorders of lower leg j oint documented in this encounter
--- OUTSIDE RECORDS SUMMARY | 2022-01-25 09:08 | XMS_ITS ---
:1990 Author Care Team Providers Name Role Phone Craig Cruz Genna Primary Care Provider Unavailable Allergies Code Code System Name Reaction Severity Status Onset NKDA ? Medications No Medications Reported Problems No Known Problems Procedures None recorded. Results Lab Results Date Name Specimen Result Interpretation Description Value Range Status Address ? 04/17/2020 SARS CoV 2 IgG ABNORMAL Sars positive ? [facility], QL [place], Cov 2 Ab Diag nostics - Serum or IgG Benitez Parada layla Plasma Lab: [address], [place] 04/17/2020 SARS CoV 2 RNA Nose ? Result negative ? ? 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 Social History None recorded. Vaccine List None recorded. Plan of Care Reminders Provider Appointments None recorded. ? ? Lab None recorded. ? ? Referral None recorded. ? ? Procedures None recorded. ? ? Surgeries None recorded. ? ? Imaging None recorded. ? ? Vitals None recorded.
[2022-01-25 15:46] LABS: Chloride* 105 mmol/L (96-114)
[2022-01-25 15:47] LABS: Sodium* 140 mmol/L (135-149)
[2022-01-25 15:49] LABS: Carbon Dioxide* 23 mmol/L (20-32); Cholesterol* 211 mg/dL (90-199); Creatinine* 0.7 mg/dL (0.5-1.5); Estimated Glomerular Filt Rate 119 ml/min
[2022-01-25 15:50] LABS: Blood Urea Nitrogen* 12 mg/dL (5-24); Calcium* 9.2 mg/dL (8.4-10.6); Glucose* 105 mg/dL (60-115); HDL Cholesterol* 45 mg/dL (>=50); LDL Cholesterol Calculated 143 mg/dL (<100); Triglycerides* 117 mg/dL (40-149)
== END 2022-01-25 09:05 | disposition home or self-care (01) ==
PROVIDERS: PCP Family Medicine; Visit Provider Family Medicine
DX: E78.5 Hyperlipidemia, unspecified (principal); I10 Essential (primary) hypertension; E66.9 Obesity, unspecified; Z79.899 Other long term (current) drug therapy
CPT/HCPCS: 80048; 80061

== ENCOUNTER 2023-02-24 08:16 | Outpatient (CLI) | payer BC, SELFPAY | END 2023-02-24 08:17 | disposition home or self-care (01) | LOC: LONREF 08:17 | PROVIDERS: PCP Family Medicine; Visit Provider Family Medicine | DX: I10 Essential (primary) hypertension (principal) | CPT/HCPCS: 80048 ==

== ENCOUNTER 2024-04-19 10:35 | Outpatient (CLI) | payer BC, SELFPAY ==
--- OUTSIDE RECORDS SUMMARY | 2024-04-19 10:39 | XMS_ITS | Encounter Summary ---
Author Organization [place] Address [address] [facility] [place] [address] Care Team Providers Care Supervisor Felling Bucking Name Role Phone Jose Manuel Peters MD Unavailable + Encounter Details Date Type Department Care Team (Late st Contact Info) Description 11/04/2019 MyC Medical Advice 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 No / Unsure 11/01/2019 8:22 AM CDT documented as of this encounter Plan of Treatment Not on file documented as of this encounter Visit Diagnoses Not on filedocumented in this encounter Care Teams Supervisor Felling Bucking Relationship Specialty Start Date End Date Jose Manuel Peters MD [address] [place] [address] Assigned Musculoskeletal Provider 03/06/20 08/07/21 documented as of this encounter
--- OUTSIDE RECORDS SUMMARY | 2024-04-19 10:39 | XMS_ITS | Clinical Summary ---
Author Organization [employer] [facility] Address [place], [place] [address] Care Team Providers Care Bill Collector Name Role Phone Pcp, No Primary Care Provider Unavailabl e Allergies Active Allergy Reactions Criticality Noted Date Comments Pollen Extracts Headache,Other - Brandan cribe In Comment Field 02/03/2020 Medications Medication Sig Dispensed Refills Start Date End Date Status buPROPion (WELLBUTRIN XL) 150 mg Extended-Release tablet 03/03/2022 Active lisinopriL (PRINIVIL; ZESTRIL) 10 mg tablet Take 10 mg by mouth once daily. 01/04/2022 Active norethindrone, Contraceptive, (MICRONOR, 28,) 0.35 mg tablet Take 0.35 mg by mouth once daily. 01/25/2022 Active cyclobenzaprine (FLEXERIL) 10 mg tabletIndications:Acu te bilateral low back pain without sciatica Take 1 Tablet (10 mg) by mouth 3 times daily if needed for Muscle Spasm. 30 Tablet 03/03/2022 Active Active Problems No known active problems Social History Tobacco Use Types Packs/Day Years Used Date Smoking Tobacco: Never Smokeless Tobacco: Never Sex and Gender Information Value Date Recorded Sex Assigned at Not on file Gender Identity Not on file Sexual Orientation Not on file Obstetrics History Last Filed Vital Signs Vital Sign Reading Time Taken Comments Blood Pressure 132/82 03/03/2022 4:46 PM CDT Pulse 91 03/03/2022 4:46 PM CDT Temperature 36.4 C (97.6 F) 03/03/2022 4:46 PM CDT Respiratory Rate 20 03/03/2022 4:46 PM CDT Oxygen Saturation 97% 03/03/2022 4:46 PM CDT Inhaled Oxygen Concentration - - Weight 117.9 kg (260 lb) 03/03/2022 4:46 PM CDT Height - - Body Mass Index - - Plan of Treatment Health Maintenance Due Date Last Done Comments Tdap 10/06/2002 Depression screening for age 12+ 2003 HIV for age 15-65 10/06/2006 BMI (ht and wt on same day) for age 18+ 10/06/2009 Hepatitis C screening for age 18-79 10/06/2009 Tetanus booster 2011 Pap test for age 21-65 01/05/2021 01/05/2018 COVID-19 vaccine series ( season) 2024 02/16/2022, 03/04/2021, 06/25/2020, Additional history exists Influenza for age 9-49 01/14/2024 Pneumococcal series for age 6-64 Aged Out No longer eligible based on patient's age to complete this topic Procedures Procedure Name Priority Date/Time Associated Diagnosis Comments UNDERPRESSER HAND THIN PREP PAP SCREEN IMAGED Routine 01/05/2018 12:00 PM CDT from Last 3 Months or Most Recently Relevant to Health Maintenance Results * UNDERPRESSER HAND THIN PREP PAP SCREEN IMAGED (01/05/2018 12:00 PM CDT) Case Report Gynecologic Cytology Report Case: [id number] Authorizing Provider: Jazzmine Noguera PA-C Collected: 01/05/2018 1200 First Screen: Pattie Atkins Received: 01/09/2018 1129 Specimen: UNDERPRESSER HAND ThinPrep Vial Screening, Cervical/Vaginal 01/19/2018 1:09 PM CDT [facility] INTERPRETATION/ RESULT NEGATIVE FOR INTRAEPITHELIAL LESION OR MALIGNANCY (NIL) (none) 01/19/2018 1:09 PM CDT [facility] IMEN ADEQUACY Satisfactory for evaluation Endocervical component present 01/19/2018 1:09 PM CDT [facility] HPV REQUEST HPV if ASCUS 01/19/2018 1:09 PM CDT [facility] Date of LMP 12/29/2017 01/19/2018 1:09 PM CDT [facility] Last Pap Date 10/30/2014 01/19/2018 1:09 PM CDT [facility] Last Pap Result NIL 8 1:09 PM CDT [facility] Automated Review Successful 01/19/2018 1:09 PM CDT [facility] Comment:Specimen processed s uccessfully by automated client technical support associate device, [employer] Imaging System, [employer] Note The pap test is a screening technique, not a diagnostic procedure. It is used primarily to screen for squamous cancers and precursor lesions. Published studies have shown that it is subject to both false negative and false positive results. The pap test should not be used as the sole means to diagnose or exclude pre-malignant and malignant lesions. Cytology is screened and interpreted at [facility] - [address], [place] [address] and [facility] - [address]; [place] [address] and [facility] - [address]; [place] [address] and [facility] [address]; [place] [address] 01/19/2018 1:09 PM CDT [facility] Other (Cervical/Vagina l) 01/05/2018 12:00 PM CDT 01/09/2018 11:29 AM CDT [facility] [address] [place] [address], [place] from Last 3 Months or Most Recently Relevant to Health Maintenance Care Teams Bill Collector Relationship Specialty Start Date End Date Pcp, No . PCP - General 10/12/18
--- OUTSIDE RECORDS SUMMARY | 2024-04-19 10:39 | XMS_ITS | Referral Summary ---
Author Organization [place] Address [address] [facility] [place] [address] Care Team Providers Care Concrete Mason Name Role Phone Unavailable Primary Care Provider Unavailabl e Allergies Active Allergy Reactions Criticality Noted Date Comments Seasonal Allergies Headache,Other (See Comments) 02/03/2020 Medications lisinopril (ZESTRIL) 10 MG tablet Take 1 tablet by mouth daily 07/16/2019 Active Melatonin 5 MG CHEW Take 1 tablet by mouth as needed 12/13/2018 Active norethindrone (MICRONOR) 0.35 MG tablet Take 1 tablet by mouth daily 01/05/2018 Active Active Problems Problem Noted Date Diagnosed Date Locking of right knee 10/22/2019 Overview (10/22/2019): Added automatically from request for surgery [id number] Resolved Problems Problem Noted Date Diagnosed Date Resolved Date Acute pain of right knee 10/15/201906/2019 Social History Tobacco Use Types Packs/Day Years Used Date Smoking Tobacco: Never Smokeless Tobacco: Never PHQ-2 Answer Date Recorded PHQ-2 Score 0 02/03/2020 Adolescent Education Answer Date Record ed Getting School Help Needed Not on file 02/19 Comments No Sex and Gender Information Value Date Recorded Sex Assigned at Female 10/11/2019 5:38 PM CDT 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 Gender Identity Female 10/11/2019 5:38 PM CDT Sexual Orientation Straight 10/11/2019 5: 38 PM CDT Last Filed Vital Signs Vital Sign Reading Time Taken Comments Blood Pressure 120/73 11/01/2019 1:45 PM CDT Pulse 72 11/01/2019 1:45 PM CDT Temperature 36.4 C (97.5 F) 11/01/2019 1:45 PM CDT Respiratory Rate 16 02/03/2020 1:22 PM CDT Oxygen Saturation 97% 11/01/2019 1:45 PM CDT Inhaled Oxygen Concentration - - Weight 105.2 kg (232 lb) 02/03/2020 1:22 PM CDT Height 170.2 cm (5' 7) 02/03/2020 1:22 PM CDT Body Mass Index 36.34 02/03/2020 1:22 PM CDT Plan of Treatment Not on file [place]
--- OUTSIDE RECORDS SUMMARY | 2024-04-19 10:39 | XMS_ITS | Clinical Summary ---
Author Organization [place] Address [address] [facility] 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
--- OUTSIDE RECORDS SUMMARY | 2024-04-19 10:39 | XMS_ITS | Encounter Summary ---
Author Organization [place] Address [address] [place] [address] Care Team Providers Care Technical Support Internship Name Role Phone Jose Manuel Peters MD Unavailable + Encounter Details Date Type Department Care Team (Late st Contact Info) Description 10/29/2019 [facility] [address] [place] [address] [address] [place] [address] Maddie Goldberg RN Social History Tobacco Use Types Packs/Day Years Used Date Smoking Tobacco: Never Assessed PHQ-2 Answer Date Recorded PHQ-2 Score 0 10/15/2019 Comments Unknown Sex and Gender Information Value Date Recorded Sex Assigned at Female 10/11/2019 5:38 PM CDT 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
[2024-04-20 21:58] LABS: HPV Source Cervix; HPV, High Risk by TMA Not Detected
== END 2024-04-19 10:36 | disposition home or self-care (01) ==
PROVIDERS: PCP Family Medicine; Visit Provider Registered Nurse
DX: Z12.4 Encounter for screening for malignant neoplasm of cervix (principal); E78.5 Hyperlipidemia, unspecified
CPT/HCPCS: 80061; 87624; 87625; 88141; 88142

== ENCOUNTER 2024-08-13 09:48 | Outpatient (CLI) | payer OTHER, SELFPAY | END 2024-08-13 09:49 | disposition home or self-care (01) | PROVIDERS: PCP Family Medicine; Visit Provider Family Medicine | DX: E78.5 Hyperlipidemia, unspecified (principal); I10 Essential (primary) hypertension; Z13.29 Encounter for screening for other suspected endocrine disorder | CPT/HCPCS: 80048; 84439 ==